=== PATIENT | male | born 1965 | race Caucasian/White ===

== ENCOUNTER 2018-06-12 18:18 | Inpatient (IN) ==
[2018-06-13] MEDS ORDERED: Insulin LISPRO 300 UNITS/3 ML VIAL SQ SCH (21:00)
[2018-06-13] MEDS ORDERED: Insulin DETEMIR 100 UNIT/ML per UNIT SQ ONE (21:00)
[2018-06-13] MEDS: Gabapentin 300 MG CAPSULE PO SCH (22:14)
[2018-06-13] MEDS: Apixaban 5 MG TABLET PO SCH (22:14)
[2018-06-13] MEDS: *HR* LORazepam 0.5 MG TABLET PO PRN (22:15)
[2018-06-13] MEDS: *HR* OxyCODONE/APAP 10/325 TABLET PO PRN (22:15)
[2018-06-13] MEDS: hydrALAZINE 10 MG TABLET PO SCH (22:16)
[2018-06-13] MEDS: Famotidine 20 MG TABLET PO SCH (22:16)
[2018-06-14] MEDS: Ondansetron 4 MG/2 ML VIAL IVP SCH ×2 (05:12→05:14)
[2018-06-14] MEDS ORDERED: Insulin LISPRO 300 UNITS/3 ML VIAL SQ SCH ×2 (08:00→11:30)
[2018-06-14] MEDS ORDERED: *HR* Dextrose 50 % in Water (Syg) 50 ML SYRINGE IVP PRN (08:38)
[2018-06-14] MEDS ORDERED: Dextrose Gel 15 GM/37.5 ML TUBE PO PRN ×2 (08:38)
[2018-06-14] MEDS ORDERED: D5% in Water 1,000 ML IVC PRN (08:38)
[2018-06-14] MEDS ORDERED: Insulin DETEMIR 100 UNIT/ML X5UNITS SQ ONE (08:43)
[2018-06-14] MEDS ORDERED: Insulin DETEMIR 100 UNIT/ML X5UNITS SQ SCH (09:00)
[2018-06-14] MEDS ORDERED: Cholecalciferol (D-3) 1,000 UNIT TABLET PO SCH (09:00)
[2018-06-14] MEDS: Sennosides 8.6 MG TABLET PO SCH (09:39)
[2018-06-14] MEDS: Gabapentin 300 MG CAPSULE PO SCH ×2 (09:39→21:28)
[2018-06-14] MEDS: Furosemide 40 MG TABLET PO SCH (09:40)
[2018-06-14] MEDS: Apixaban 5 MG TABLET PO SCH ×2 (09:40→21:27)
[2018-06-14] MEDS: hydrALAZINE 10 MG TABLET PO SCH ×3 (09:41→21:27)
[2018-06-14] MEDS: *HR* LORazepam 0.5 MG TABLET PO PRN (09:41)
[2018-06-14] MEDS: Calcium Acetate 667 MG CAPSULE PO SCH ×3 (09:41→16:32)
[2018-06-14] MEDS: Insulin LISPRO 300 UNITS/3 ML VIAL SQ SCH ×4 (09:42→21:33)
[2018-06-14] MEDS: Nicotine 21 MG PATCH.TD24 TD SCH (09:42)
[2018-06-14] MEDS: FARXIGA PO SCH (09:44)
--- NOTE | 2018-06-14 10:15 | Internal Med History&Physical ---
Date of Encounter: 06/14/18 Time of Encounter: 09:45 Assessment and Plan (1) Complete below knee amputation of right lower extremity Current visit: Yes Status: Acute Uncomplicated. PT and OT evaluations with ongoing intervention will be done. Continue Eliquis for DVT prophylaxis. Qualifiers: Encounter type: initial encounter Qualified Code(s): S88.111A - Complete traumatic amputation at level between knee and ankle, right lower leg, initial encounter (2) Hypertension Current visit: Yes Status: Chronic Continue Lopressor, hydralazine and Lasix. Qualifiers: Hypertension type: essential hypertension Qualified Code(s): I10 - Essential (primary) hypertension (3) CAD (coronary artery disease) Current visit: Yes Status: Chronic Continue Lopressor and Eliquis. Qualifiers: Coronary Disease-Associated Artery/Lesion type: [place] artery Associated angina: angina presence unspecified Qualified Code(s): I25.10 - A therosclerotic heart disease of [place] coronary artery without angina pectoris (4) CHF (congestive heart failure) Current visit: Yes Status: Chronic Continue Lopressor, hydralazine and Lasix Qualifiers: Heart failure type: combined systolic and diastolic Heart failure chronicity: chronic Qualified Code(s): I50.42 - Chronic combined systolic (congestive) and diastolic (congestive) heart failure (5) COPD (chronic obstructive pulmonary disease) Current visit: Yes Status: Chronic Continue oxygen. Qualifiers: COPD type: unspecified COPD Qualified Code(s): J44.9 - Chronic obstructive pulmonary disease, unspecified (6) CKD (chronic kidney disease) stage 3, GFR 30-59 ml/min Current visit: Yes Status: Chronic Monitor renal indices. Continue PhosLo (7) DM type 2 (diabetes mellitus, type 2) Current visit: Yes Status: Chronic Check hemoglobin A1c. Order Accu-Cheks with SSI. Qualifiers: Diabetes mellitus parts counterman insulin use: with prison use Diabetes mellitus complication status: with unspecified complications Qualified Code(s): E11.8 - Type 2 diabetes mellitus with unspecified complications; Z79.4 - skilled nursing (current) use of insulin (8) Anemia Current visit: Yes Status: Acute Will order anemia testing in a.m. Qualifiers: Anemia type: unspecified type Qualified Code(s): D64.9 - Anemia, unspecified (9) Low vitamin D level Current visit: Yes Status: Acute Check vitamin D level in a.m. (10) Anxiety and depression Current visit: Yes Status: Acute Continue Zoloft Internal Medicine - H&P: HPI Chief complaint: Right BKA Admitted From: Hospital to Hospital Transfer Plans for Post Hospital Care: Home History of present illness: Mr. Gillespie is a 52 year old male who was admitted to [facility] swing bed following hospitalization at [facility] where he underwent right BKA. He has been treated for osteomyelitis of the right foot and had severe peripheral vascular disease. His postop course was unremarkable and he was transferred to [facility] swing bed for rehabilitation therapy. He had left [facility] October 2017 for severe peripheral vascular disease. He reports multiple previous vascular surgery procedures on his legs prior to the amputations. [place] skeletal history is significant otherwise for DJD. He is uncertain if he has gout. Past Med Surg Social Fam HX - Past Medical History Medical history: arthritis, COPD, coronary artery disease, DVT, diabetes, GERD, hypertension, myocardial infarction, renal disease Additional medical history: blood clots, open heart surgery 2013, x3 bypasses each leg Psychiatric history: anxiety, depression - Past Surgical History Surgical History: cholecystectomy, coronary bypass (CABG), LE vascular intervention, vascular surgery Additional surgical history: wires in chest, "about 50 operations on my feet" - Social History Smoking Status: Current every day smoker Smokeless Tobacco Status: No Alcohol use: occasionally Drug use: none Internal Medicine - H&P: Meds Clopidogrel [Plavix] 75 mg PO DAILY 02/24/15 [History] Gabapentin 300 mg PO QAM 03/17/15 [History] Insulin ASPART [NovoLOG] 5 - 25 units SQ TID PRN 03/17/15 [History] Invokana 10 mg PO QAM 03/17/15 [History] Klonopin 1 mg PO QAM 03/17/15 [History] Nexium 40 mg PO QAM 03/17/15 [History] Percocet 10-325 mg Tablet 10 mg PO Q4HR 03/17/15 [History] Warfarin [Coumadin] 9 mg PO DAILY 03/17/15 [History] Zoloft 150 mg PO DAILY 03/17/15 [History] Ezetimibe [Zetia] 10 mg PO QAM 07/17/15 [History] Insulin DETEMIR [Levemir] 75 unit SQ BID 07/17/15 [History] Metoprolol [Lopressor] 25 mg PO BID 07/17/15 [History] Celecoxib [Celebrex] 200 mg PO BID 06/08/16 [History] Cyclobenzaprine [Flexeril] 10 mg PO TID PRN 06/08/16 [History] Furosemide [Lasix] 40 mg PO DAILY 06/08/16 [History] Allergy/AdvReac Type Severity Reaction Status Date / Time No Known Allergies Allergy Verified 02/24/15 15:48 All Systems PM: A 10-system review of systems was performed and is negative for pertinent findings except as documented above in the HPI. Review of systems: Gen.: He states his weight has been stable prior to the amputations Cardiovascular: He has history of hypertension. He has known ASHD status post RI 2015. He reports 6 vessel bypass surgery 2014 and had at least 2 coronary stents prior to the surgery. He reports his most recent heart catheter was April 2018 without intervention done. He has known ASPVD with leg amputations as per above. He has chronic CHF with LVEF of 25-30% on echocardiogram done 05/31/2018. There was left ventricular diastolic dysfunction reported. The E/A ratio was 1.9. There was LAE at 4.3 cm. He states he had AICD placement 2016. He reports history of DVT and pulmonary emboli and is on OAC Respiratory: He has smoked since age 10 up to 3-1/2 packs per day. He has a diagnosis COPD and uses oxygen at home. He states he has not smoked in the past month. He denies VICENTE workup GI: He has had cholecystectomy. He denies disorders of his liver or exocrine pancreas : He had urinary retention requiring Muñoz catheter insertion during his recent hospitalization. The catheter has not been removed. He has chronic kidney disease stage III. He denies other kidney bladder prostate disorders Neurologic: He denies large distribution strokes or seizures. Endocrine: He was diagnosed with DM 2 age 29. He has hyperlipidemia and has had low vitamin D level. He denies known thyroid disease Hematology/oncology: He denies internal malignancies. He has anemia but denies other blood disorders. Psychiatric: He has anxiety and depression [place] skeletal: As per history of present illness - Constitutional Vitals: Temp Pulse Resp BP Pulse Ox 97.9 F 85 18 141/85 92 06/14/18 08:09 06/14/18 08:09 06/14/18 08:09 06/14/18 08:09 06/14/18 08:09 Exam: Gen.: He is a well-developed well-nourished male who appears in no acute distress at present time HEENT: Head is atraumatic and normal cephalic. Eyes: EOMI. There is no scleral icterus. Mouth: Mucosa is dry Neck: There is no thyromegaly or adenopathy noted. Heart: Regular without murmurs gallops or ectopics Lungs: No wheezes or crackles are heard. Abdomen: Soft and nontender. No masses or guarding are noted. Extremities: He has a well-healed left AKA. He has a right BKA with elastic compression wrap on the distal stump which I did not remove. He has mild DJD changes of his hands. Neurologic: Mental status: He is talkative and a good historian. Cranial nerves: Smile is symmetric. Forehead wrinkles bilaterally. Tongue protrudes midline. EOMI. Motor: There is no pronator drift. Cerebellar: Finger to nose is intact bilaterally. Skin: Warm and dry
[2018-06-14] MEDS: *HR* OxyCODONE/APAP 10/325 TABLET PO PRN ×2 (12:22→16:33)
[2018-06-14] MEDS: Cholecalciferol (D-3) 1,000 UNIT TABLET PO SCH (12:28)
[2018-06-14] MEDS: Famotidine 20 MG TABLET PO SCH (21:28)
[2018-06-14] MEDS: Insulin DETEMIR 100 UNIT/ML X5UNITS SQ SCH (21:31)
[2018-06-15 05:12] LABS: Basophils # 0.1 K/mcL (0.0-0.2); Eosinophils # 0.4 K/mcL (0.0-0.6); Eosinophils % 4.9 %; Hematocrit 31.2 % (37.5-50.1); Hemoglobin 9.4 g/dL (12.9-16.9); Immature Granulocytes % 0.4 % (0-4); Lymphocytes # 0.9 K/mcL (0.6-4.6); Lymphocytes % 11.3 %; Mean Corpuscular HGB Conc 30.1 g/dL (31.6-35.5); Mean Corpuscular Hemoglobin 25.3 pg (28.0-33.3); Mean Corpuscular Volume 83.9 fL (83.0-100.0); Mean Platelet Volume 9.6 fL (9.4-12.4); Monocytes # 0.4 K/mcL (0.0-1.3); Monocytes % 5.3 %; Neutrophils # 6.4 K/mcL (1.6-8.9); Platelet Count 344 K/mcL (140-400); Red Blood Count 3.72 M/mcL (4.19-5.50); Red Cell Distribution Width 17.3 % (11.5-14.5); Segmented Neutrophils % 77.1 %
[2018-06-15 05:33] LABS: BUN/Creatinine Ratio 38 (6-26); Blood Urea Nitrogen 51 mg/dL (6-20); Calcium 8.6 mg/dL (8.6-10.3); Carbon Dioxide 30 mEq/L (23-29); Chloride 101 mEq/L (98-107); Glucose 107 mg/dL (70-105); Osmolality,Calculated 302 (280-300); Phosphorous 4.4 mg/dL (2.7-4.5); Potassium 4.3 mEq/L (3.5-5.1); Sodium 139 mEq/L (136-145); eGFR For Non-African Americans 55 (> 60)
[2018-06-15 05:45] LABS: Thyroid Stimulating Hormone 2.776 mcIU/mL (0.340-5.600)
[2018-06-15] MEDS: Insulin LISPRO 300 UNITS/3 ML VIAL SQ SCH ×4 (07:52→20:10)
[2018-06-15] MEDS: Calcium Acetate 667 MG CAPSULE PO SCH ×3 (07:57→16:29)
[2018-06-15] MEDS ORDERED: Furosemide 40 MG/4 ML VIAL IVP ONE (08:07)
[2018-06-15] MEDS: Apixaban 5 MG TABLET PO SCH ×2 (08:36→20:10)
[2018-06-15] MEDS: Gabapentin 300 MG CAPSULE PO SCH ×2 (08:36→20:09)
[2018-06-15] MEDS: Sennosides 8.6 MG TABLET PO SCH (08:37)
[2018-06-15] MEDS: Cholecalciferol (D-3) 1,000 UNIT TABLET PO SCH (08:38)
[2018-06-15] MEDS: hydrALAZINE 10 MG TABLET PO SCH ×3 (08:38→20:09)
[2018-06-15] MEDS: Furosemide 40 MG TABLET PO SCH (08:39)
[2018-06-15] MEDS: Nicotine 21 MG PATCH.TD24 TD SCH (08:39)
[2018-06-15] MEDS: FARXIGA PO SCH (08:39)
--- NOTE | 2018-06-15 09:05 | Internal Med Progress Note ---
Date of Encounter: 06/15/18 Time of Encounter: 08:55 - Assessment and plan (1) Complete below knee amputation of right lower extremity Current Visit: Yes Status: Acute Assessment and plan: June 15. Continue Eliquis for DVT prophylaxis. Continue PT and OT intervention. Qualifiers: Encounter type: initial encounter Qualified Code(s): S88.111A - Complete traumatic amputation at level between knee and ankle, right lower leg, initial encounter (2) Hypertension Current Visit: Yes Status: Chronic Assessment and plan: June 15. Blood pressure show significant fluctuation. Continue Lopressor, hydralazine, and Lasix. Qualifiers: Hypertension type: essential hypertension Qualified Code(s): I10 - Essential (primary) hypertension (3) CAD (coronary artery disease) Current Visit: Yes Status: Chronic Assessment and plan: June 15. Continue Lopressor and Eliquis. Qualifiers: Coronary Disease-Associated Artery/Lesion type: [place] artery Associated angina: angina presence unspecified Qualified Code(s): I25.10 - Atherosclerotic heart disease of [place] coronary artery without angina pectoris (4) CHF (congestive heart failure) Current Visit: Yes Status: Chronic Assessment and plan: June 15. Continue Lopressor, hydralazine, and Lasix. Qualifiers: Heart failure type: combined systolic and diastolic Heart failure chronicity: chronic Qualified Code(s): I50.42 - Chronic combined systolic (congestive) and diastolic (congestive) heart failure (5) COPD (chronic obstructive pulmonary disease) Current Visit: Yes Status: Chronic Assessment and plan: June 15. Continue oxygen Qualifiers: COPD type: unspecified COPD Qualified Code(s): J44.9 - Chronic obstructive pulmonary disease, unspecified (6) CKD (chronic kidney disease) stage 3, GFR 30-59 ml/min Current Visit: Yes Status: Chronic Assessment and plan: June 15. Continue PhosLo. Monitor renal indices. (7) DM type 2 (diabetes mellitus, type 2) Current Visit: Yes Status: Chronic Assessment and plan: June 15. Hemoglobin A1c pending. Continue Accu-Cheks with SSI. Qualifiers: Diabetes mellitus cost accounting clerk insulin use: with cost accounting clerk use Diabetes mellitus complication status: with unspecified complications Qualified Code(s): E11.8 - Type 2 diabetes mellitus with unspecified complications; Z79.4 - telephone order supervisor (current) use of insulin (8) Anemia Current Visit: Yes Status: Acute Assessment and plan: June 15. Anemia testing pending. Qualifiers: Anemia type: unspecified type Qualified Code(s): D64.9 - Anemia, unspecified (9) Low vitamin D level Current Visit: Yes Status: Acute Assessment and plan: June 15. Vitamin D level pending (10) Anxiety and depression Current Visit: Yes Status: Acute Assessment and plan: June 15. Continue Zoloft - Subjective Interval history: June 15. He has no new complaints. - Constitutional Vitals: Temp Pulse Resp BP Pulse Ox 98.1 F 83 28 160/93 95 06/15/18 08:25 06/15/18 08:25 06/15/18 08:25 06/15/18 08:25 06/15/18 08:25 Exam: He is resting comfortably in bed and appears in no acute distress. His affect is overall cheerful. He is appropriate in conversation. I reviewed his medications and lab results. Internal Medicine: Result - Labs CBC & Chem 7: 06/15/18 04:25 06/15/18 04:25 Labs: Short CBC 06/15/18 Range/Units 04:25 WBC 8.3 (4.3-11.1) K/mcL Hgb 9.4 L (12.9-16.9) g/dL Hct 31.2 L (37.5-50.1) % Plt Count 344 (140-400) K/mcL Neutrophils # 6.4 (1.6-8.9) K/mcL BMP 06/15/18 04:25 Sodium 139 Potassium 4.3 Chloride 101 Carbon Dioxide 30 H BUN 51 H Creatinine 1.35 H Glucose 107 H Calcium 8.6 Consult Discharge Plan - Plan Referrals: Axel Bhardwaj MD [Primary Care Provider] - 1 week
[2018-06-15 09:29] LABS: Estimated Average Glucose 214 mg/dl; Hemoglobin A1C 9.1 %
[2018-06-15] MEDS: Insulin DETEMIR 100 UNIT/ML X5UNITS SQ SCH ×2 (09:34→20:18)
[2018-06-15 10:00] LABS: Folate 13.8 ng/mL (3.0-16.0)
[2018-06-15] MEDS: *HR* OxyCODONE/APAP 10/325 TABLET PO PRN ×2 (12:53→20:09)
[2018-06-15] MEDS: Ondansetron 4 MG/2 ML VIAL IVP PRN (20:02)
[2018-06-15] MEDS: *HR* LORazepam 0.5 MG TABLET PO PRN (20:09)
[2018-06-15] MEDS: Famotidine 20 MG TABLET PO SCH (20:09)
[2018-06-15 20:40] LABS: % Iron Saturation 8 % (20-55); Iron 23 mcg/dL (65-175); Transferrin 198 mg/dL (203-362)
[2018-06-15 20:59] LABS: Ferritin 161 ng/mL (20-250)
[2018-06-16] MEDS: Cholecalciferol (D-3) 1,000 UNIT TABLET PO SCH (09:31)
[2018-06-16] MEDS: Sennosides 8.6 MG TABLET PO SCH (09:31)
[2018-06-16] MEDS: Furosemide 40 MG TABLET PO SCH (09:31)
[2018-06-16] MEDS: hydrALAZINE 10 MG TABLET PO SCH ×3 (09:31→20:43)
[2018-06-16] MEDS: Apixaban 5 MG TABLET PO SCH ×2 (09:31→20:43)
[2018-06-16] MEDS: Gabapentin 300 MG CAPSULE PO SCH ×2 (09:31→20:43)
[2018-06-16] MEDS: Calcium Acetate 667 MG CAPSULE PO SCH ×3 (09:31→17:04)
[2018-06-16] MEDS: Insulin LISPRO 300 UNITS/3 ML VIAL SQ SCH ×4 (09:32→23:35)
[2018-06-16] MEDS: Nicotine 21 MG PATCH.TD24 TD SCH (09:32)
[2018-06-16] MEDS: Insulin DETEMIR 100 UNIT/ML X5UNITS SQ SCH ×2 (09:33→20:43)
[2018-06-16] MEDS: FARXIGA PO SCH (09:36)
--- NOTE | 2018-06-16 10:39 | Internal Med Progress Note ---
Date of Encounter: 06/16/18 Time of Encounter: 10:30 - Assessment and plan (1) Complete below knee amputation of right lower extremity Current Visit: Yes Status: Acute Assessment and plan: June 15. Continue Eliquis for DVT prophylaxis. Continue PT and OT intervention. Qualifiers: Encounter type: initial encounter Qualified Code(s): S88.111A - Complete traumatic amputation at level between knee and ankle, right lower leg, initial encounter (2) Hypertension Current Visit: Yes Status: Chronic Assessment and plan: June 15. Blood pressure show significant fluctuation. Continue Lopressor, hydralazine, and Lasix. June 16. Change to Toprol-XL at increased dose since pressures are not well controlled. Continue hydralazine and Lasix. Add Imdur Qualifiers: Hypertension type: essential hypertension Qualified Code(s): I10 - Essential (primary) hypertension (3) CAD (coronary artery disease) Current Visit: Yes Status: Chronic Assessment and plan: June 15. Continue Lopressor and Eliquis. June 16. Increase metoprolol dose as Toprol XL. Continue Eliquis. Add Imdur for CAD/heart failure. Qualifiers: Coronary Disease-Associated Artery/Lesion type: [place] artery Associated angina: angina presence unspecified Qualified Code(s): I25.10 - Atherosclerotic heart disease of [place] coronary artery without angina pectoris (4) CHF (congestive heart failure) Current Visit: Yes Status: Chronic Assessment and plan: June 15. Continue Lopressor, hydralazine, and Lasix. June 16. Add Imdur and change metoprolol to Toprol-XL. Qualifiers: Heart failure type: combined systolic and diastolic Heart failure chronicity: chronic Qualified Code(s): I50.42 - Chronic combined systolic (congestive) and diastolic (congestive) heart failure (5) COPD (chronic obstructive pulmonary disease) Current Visit: Yes Status: Chronic Assessment and plan: June 15. Continue oxygen Qualifiers: COPD type: unspecified COPD Qualified Code(s): J44.9 - Chronic obstructive pulmonary disease, unspecified (6) CKD (chronic kidney disease) stage 3, GFR 30-59 ml/min Current Visit: Yes Status: Chronic Assessment and plan: June 15. Continue PhosLo. Monitor renal indices. (7) DM type 2 (diabetes mellitus, type 2) Current Visit: Yes Status: Chronic Assessment and plan: June 15. Hemoglobin A1c pending. Continue Accu-Cheks with SSI. June 16. Hemoglobin A1c elevated at 9.1%. Blood sugars currently adequately controlled. Continue Levemir and Accu-Cheks with SSI. Qualifiers: Diabetes mellitus terminal operator insulin use: with terminal operator use Diabetes m conraditus complication status: with unspecified complications Qualified Code(s): E11.8 - Type 2 diabetes mellitus with unspecified complications; Z79.4 - exterminator termite (current) use of insulin (8) Anemia Current Visit: Yes Status: Acute Assessment and plan: June 15. Anemia testing pending. June 16. Anemia testing shows iron 23, transferrin saturation 8%, tra nsferrin 198, ferritin 161, B12 346, and folate 13.8. Continue ferrous sulfate and add ascorbic acid and discontinue omeprazole to facilitate absorption. Qualifiers: Anemia type: unspecified type Qualified Code(s): D64.9 - Anemia, unspecified (9) Low vitamin D level Current Visit: Yes Status: Acute Assessment and plan: June 15. Vitamin D level pending June 16. Vitamin D level normal at 34. (10) Anxiety and depression Current Visit: Yes Status: Acute Assessment and plan: June 15. Continue Zoloft - Subjective Interval history: June 15. He has no new complaints. June 16. He has no new complaints except slight dyspnea. He inquired about going home and receiving antibiotics but was told insurance would not cover home antibiotics. I also explained he would benefit from ongoing therapy. - Constitutional Vitals: Temp Pulse Resp BP Pulse Ox 97.7 F 78 19 143/99 98 06/16/18 07:25 06/16/18 07:25 06/16/18 07:25 06/16/18 07:25 06/16/18 07:25 Exam: He is sitting on the side of bed and appears fairly comfortable. His affect is overall cheerful. I reviewed his medications and lab results. Internal Medicine: Result - Labs CBC & Chem 7: 06/15/18 04:25 06/15/18 04:25 Consult Discharge Plan - Plan Referrals: Axel Bhardwaj MD [Primary Care Provider] - 1 week
[2018-06-16] MEDS: Isosorbide MONOnitrate (24 HR) 30 MG TAB.ER.24H PO SCH (12:04)
[2018-06-16] MEDS ORDERED: Aminoglycoside Consult 1 EACH MC ONE (13:00)
[2018-06-16] MEDS: *HR* OxyCODONE/APAP 10/325 TABLET PO PRN (13:10)
[2018-06-16] MEDS: Albuterol 2.5 MG/3 ML NEBULIZER IH PRN (13:43)
[2018-06-16] MEDS: *HR* LORazepam 0.5 MG TABLET PO PRN (13:43)
[2018-06-17] MEDS: *HR* OxyCODONE/APAP 10/325 TABLET PO PRN ×2 (02:52→11:34)
[2018-06-17 05:54] LABS: Basophils # 0.1 K/mcL (0.0-0.2); Basophils % 0.7 %; Eosinophils # 0.3 K/mcL (0.0-0.6); Eosinophils % 4.6 %; Hematocrit 31.8 % (37.5-50.1); Hemoglobin 9.6 g/dL (12.9-16.9); Immature Granulocytes % 0.1 % (0-4); Lymphocytes # 0.6 K/mcL (0.6-4.6); Lymphocytes % 8.4 %; Mean Corpuscular HGB Conc 30.2 g/dL (31.6-35.5); Mean Corpuscular Hemoglobin 24.7 pg (28.0-33.3); Mean Platelet Volume 9.4 fL (9.4-12.4); Monocytes # 0.4 K/mcL (0.0-1.3); Monocytes % 5.9 %; Neutrophils # 5.7 K/mcL (1.6-8.9); Platelet Count 291 K/mcL (140-400); Red Blood Count 3.88 M/mcL (4.19-5.50); Red Cell Distribution Width 17.2 % (11.5-14.5); Segmented Neutrophils % 80.3 %
[2018-06-17] MEDS: Ascorbic Acid 500 MG TABLET PO SCH (06:09)
[2018-06-17 06:23] LABS: BUN/Creatinine Ratio 30 (6-26); Blood Urea Nitrogen 42 mg/dL (6-20); Calcium 8.6 mg/dL (8.6-10.3); Carbon Dioxide 30 mEq/L (23-29); Chloride 99 mEq/L (98-107); Glucose 120 mg/dL (70-105); Osmolality,Calculated 298 (280-300); Potassium 4.3 mEq/L (3.5-5.1); Sodium 138 mEq/L (136-145); eGFR For Non-African Americans 53 (> 60)
[2018-06-17] MEDS: Insulin DETEMIR 100 UNIT/ML X5UNITS SQ SCH ×2 (09:03→21:28)
[2018-06-17] MEDS: Calcium Acetate 667 MG CAPSULE PO SCH ×3 (09:04→17:33)
[2018-06-17] MEDS: Cholecalciferol (D-3) 1,000 UNIT TABLET PO SCH (09:04)
[2018-06-17] MEDS: Apixaban 5 MG TABLET PO SCH ×2 (09:04→21:24)
[2018-06-17] MEDS: Furosemide 40 MG TABLET PO SCH (09:04)
[2018-06-17] MEDS: hydrALAZINE 10 MG TABLET PO SCH ×3 (09:05→21:24)
[2018-06-17] MEDS: Isosorbide MONOnitrate (24 HR) 30 MG TAB.ER.24H PO SCH (09:05)
[2018-06-17] MEDS: Metoprolol XL (24 HR) Succ 50 MG TAB.ER.24H PO SCH (09:05)
[2018-06-17] MEDS: Sennosides 8.6 MG TABLET PO SCH (09:05)
[2018-06-17] MEDS: Gabapentin 300 MG CAPSULE PO SCH ×2 (09:05→21:26)
[2018-06-17] MEDS: Insulin LISPRO 300 UNITS/3 ML VIAL SQ SCH ×4 (09:12→21:27)
[2018-06-17] MEDS: FARXIGA PO SCH (09:13)
[2018-06-17] MEDS: Nicotine 21 MG PATCH.TD24 TD SCH (09:13)
[2018-06-18] MEDS: Ascorbic Acid 500 MG TABLET PO SCH (06:46)
[2018-06-18] MEDS: Insulin LISPRO 300 UNITS/3 ML VIAL SQ SCH ×4 (08:26→21:24)
[2018-06-18] MEDS: hydrALAZINE 10 MG TABLET PO SCH ×3 (08:27→21:25)
[2018-06-18] MEDS: Apixaban 5 MG TABLET PO SCH ×2 (08:27→21:25)
[2018-06-18] MEDS: Metoprolol XL (24 HR) Succ 50 MG TAB.ER.24H PO SCH (08:27)
[2018-06-18] MEDS: Cholecalciferol (D-3) 1,000 UNIT TABLET PO SCH (08:28)
[2018-06-18] MEDS: Isosorbide MONOnitrate (24 HR) 30 MG TAB.ER.24H PO SCH (08:28)
[2018-06-18] MEDS: Gabapentin 300 MG CAPSULE PO SCH ×2 (08:28→21:25)
[2018-06-18] MEDS: Furosemide 40 MG TABLET PO SCH (08:28)
[2018-06-18] MEDS: Calcium Acetate 667 MG CAPSULE PO SCH ×3 (08:28→16:55)
[2018-06-18] MEDS: Sennosides 8.6 MG TABLET PO SCH (08:28)
[2018-06-18] MEDS: Insulin DETEMIR 100 UNIT/ML X5UNITS SQ SCH ×2 (09:30→21:24)
[2018-06-18] MEDS: Nicotine 21 MG PATCH.TD24 TD SCH (09:37)
[2018-06-18] MEDS: FARXIGA PO SCH (09:38)
[2018-06-18] MEDS: *HR* LORazepam 0.5 MG TABLET PO PRN (15:49)
[2018-06-18] MEDS: *HR* OxyCODONE/APAP 10/325 TABLET PO PRN (15:49)
[2018-06-19 06:04] LABS: Basophils % 0.6 %; Eosinophils # 0.3 K/mcL (0.0-0.6); Eosinophils % 5.6 %; Hematocrit 30.3 % (37.5-50.1); Hemoglobin 9.3 g/dL (12.9-16.9); Immature Granulocytes % 0.4 % (0-4); Lymphocytes # 0.7 K/mcL (0.6-4.6); Lymphocytes % 13.8 %; Mean Corpuscular HGB Conc 30.7 g/dL (31.6-35.5); Mean Corpuscular Hemoglobin 25.2 pg (28.0-33.3); Mean Corpuscular Volume 82.1 fL (83.0-100.0); Mean Platelet Volume 9.5 fL (9.4-12.4); Monocytes # 0.4 K/mcL (0.0-1.3); Monocytes % 8.3 %; Neutrophils # 3.7 K/mcL (1.6-8.9); Platelet Count 270 K/mcL (140-400); Red Blood Count 3.69 M/mcL (4.19-5.50); Red Cell Distribution Width 17.2 % (11.5-14.5); Segmented Neutrophils % 71.3 %
[2018-06-19] MEDS: Ascorbic Acid 500 MG TABLET PO SCH (06:08)
[2018-06-19 06:24] LABS: BUN/Creatinine Ratio 23 (6-26); Blood Urea Nitrogen 31 mg/dL (6-20); Calcium 8.5 mg/dL (8.6-10.3); Carbon Dioxide 30 mEq/L (23-29); Chloride 101 mEq/L (98-107); Glucose 137 mg/dL (70-105); Osmolality,Calculated 295 (280-300); Potassium 3.9 mEq/L (3.5-5.1); Sodium 138 mEq/L (136-145); eGFR For Non-African Americans 55 (> 60)
[2018-06-19] MEDS: hydrALAZINE 10 MG TABLET PO SCH ×3 (10:01→21:06)
[2018-06-19] MEDS: Sennosides 8.6 MG TABLET PO SCH (10:01)
[2018-06-19] MEDS: Apixaban 5 MG TABLET PO SCH ×2 (10:02→21:07)
[2018-06-19] MEDS: Metoprolol XL (24 HR) Succ 50 MG TAB.ER.24H PO SCH (10:02)
[2018-06-19] MEDS: Isosorbide MONOnitrate (24 HR) 30 MG TAB.ER.24H PO SCH (10:02)
[2018-06-19] MEDS: Calcium Acetate 667 MG CAPSULE PO SCH ×3 (10:02→17:18)
[2018-06-19] MEDS: Cholecalciferol (D-3) 1,000 UNIT TABLET PO SCH (10:02)
[2018-06-19] MEDS: Furosemide 40 MG TABLET PO SCH (10:03)
[2018-06-19] MEDS: Gabapentin 300 MG CAPSULE PO SCH ×2 (10:03→21:07)
[2018-06-19] MEDS: Nicotine 21 MG PATCH.TD24 TD SCH (10:04)
[2018-06-19] MEDS: FARXIGA PO SCH (10:15)
[2018-06-19] MEDS: Insulin DETEMIR 100 UNIT/ML X5UNITS SQ SCH ×2 (10:16→21:08)
[2018-06-19] MEDS: *HR* OxyCODONE/APAP 10/325 TABLET PO PRN ×2 (10:16→21:07)
[2018-06-19] MEDS: Insulin LISPRO 300 UNITS/3 ML VIAL SQ SCH ×4 (10:17→21:09)
--- NOTE | 2018-06-19 11:27 | Internal Med Progress Note ---
Date of Encounter: 06/19/18 Time of Encounter: 11:20 - Assessment and plan (1) Complete below knee amputation of right lower extremity Current Visit: Yes Status: Acute Assessment and plan: June 15. Continue Eliquis for DVT prophylaxis. Continue PT and OT intervention. Qualifiers: Encounter type: initial encounter Qualified Code(s): S88.111A - Complete traumatic amputation at level between knee and ankle, right lower leg, initial encounter (2) Hypertension Current Visit: Yes Status: Chronic Assessment and plan: June 15. Blood pressure show significant fluctuation. Continue Lopressor, hydralazine, and Lasix. June 16. Change to Toprol-XL at increased dose since pressures are not well controlled. Continue hydralazine and Lasix. Add Imdur June 19. Blood pressure satisfactory. Continue hydralazine, Lasix, and Toprol with Imdur. Qualifiers: Hypertension type: essential hypertension Qualified Code(s): I10 - Essential (primary) hypertension (3) CAD (coronary artery disease) Current Visit: Yes Status: Chronic Assessment and plan: June 15. Continue Lopressor and Eliquis. June 16. Increase metoprolol dose as Toprol XL. Continue Eliquis. Add Imdur for CAD/heart failure. Qualifiers: Coronary Disease-Associated Artery/Lesion type: [place] artery Associated angina: angina presence unspecified Qualified Code(s): I25.10 - Atherosclerotic heart disease of [place] coronary artery without angina pectoris (4) CHF (congestive heart failure) Current Visit: Yes Status: Chronic Assessment and plan: June 15. Continue Lopressor, hydralazine, and Lasix. June 16. Add Imdur and change metoprolol to Toprol-XL. June 19. BN peptide improved to 1406. Increase Imdur and continue to monitor. Qualifiers: Heart failure type: combined systolic and diastolic Heart failure chronicity: chronic Qualified Code(s): I50.42 - Chronic combined systolic (congestive) and diastolic (congestive) heart failure (5) COPD (chronic obstructive pulmonary disease) Current Visit: Yes Status: Chronic Assessment and plan: June 15. Continue oxygen Qualifiers: COPD type: unspecified COPD Qualified Code(s): J44.9 - Chronic obstructive pulmonary disease, unspecified (6) CKD (chronic kidney disease) stage 3, GFR 30-59 ml/min Current Visit: Yes Status: Chronic Assessment and plan: June 15. Continue PhosLo. Monitor renal indices. (7) DM type 2 (diabetes mellitus, type 2) Current Visit: Yes Status: Chronic Assessment and plan: June 15. Hemoglobin A1c pending. Continue Accu-Cheks with SSI. June 16. Hemoglobin A1c elevated at 9.1%. Blood sugars currently adequately controlled. Continue Levemir and Accu-Cheks with SSI. Qualifiers: Diabetes mellitus jail insulin use: with automotive service advisor use Diabetes mellitus complication status: with unspecified complications Qualified Code(s): E11.8 - Type 2 diabetes mellitus with unspecified complications; Z79.4 - penitentiary (current) use of insulin (8) Anemia Current Visit: Yes Status: Acute Assessment and plan: June 15. Anemia testing pending. June 16. Anemia testing shows iron 23, transferrin saturation 8%, transferrin 198, ferritin 161, B12 346, and folate 13.8. Continue ferrous sulfate and add ascorbic acid and discontinue omeprazole to facilitate absorption. June 19. Hemoglobin minimally decreased to 9.3. Continue ferrous sulfate and ascorbic acid and remain off PPI. Qualifiers: Anemia type: unspecified type Qualified Code(s): D64.9 - Anemia, unspecified (9) Low vitamin D level Current Visit: Yes Status: Acute Assessment and plan: June 15. Vitamin D level pending June 16. Vitamin D level normal at 34. (10) Anxiety and depression Current Visit: Yes Status: Acute Assessment and plan: June 15. Continue Zoloft (11) Insomnia Current Visit: Yes Status: Acute Assessment and plan: June 19. He reports he is not consistently sleeping well at night and feels groggy in the daytime. Will order trazodone at bedtime and monitor. Qualifiers: Insomnia type: unspecified Qualified Code(s): G47.00 - Insomnia, unspecified - Subjective Interval history: June 15. He has no new complaints. June 16. He has no new complaints except slight dyspnea. He inquired about going home and receiving antibiotics but was told insurance would not cover home antibiotics. I also explained he would benefit from ongoing therapy. June 19. He has no new complaints. - Constitutional Vitals: Temp Pulse Resp BP Pulse Ox 97.6 F 78 14 137/82 90 06/19/18 07:06 06/19/18 07:06 06/19/18 07:06 06/19/18 07:06 06/19/18 07:06 Exam: He is sitting in a wheelchair at bedside resting comfortably. His affect is overall cheerful. I reviewed his medications and lab results. Internal Medicine: Result - Labs CBC & Chem 7: 06/19/18 04:55 06/19/18 04:55 Labs: Short CBC 06/19/18 Range/Units 04:55 WBC 5.2 (4.3-11.1) K/mcL Hgb 9.3 L (12.9-16.9) g/dL Hct 30.3 L (37.5-50.1) % Plt Count 270 (140-400) K/mcL Neutrophils # 3.7 (1.6-8.9) K/mcL BMP 06/19/18 04:55 Sodium 138 Potassium 3.9 Chloride 101 Carbon Dioxide 30 H BUN 31 H Creatinine 1.35 H Glucose 137 H Calcium 8.5 L Consult Discharge Plan - Plan Referrals: Axel Bhardwaj MD [Primary Care Provider] - 1 week
[2018-06-19] MEDS: traZODone 50 MG TABLET PO SCH (21:07)
[2018-06-19] MEDS: Famotidine 20 MG TABLET PO PRN (21:08)
[2018-06-20] MEDS: *HR* OxyCODONE/APAP 10/325 TABLET PO PRN ×3 (03:45→17:34)
[2018-06-20] MEDS: Ascorbic Acid 500 MG TABLET PO SCH (05:48)
[2018-06-20] MEDS: Insulin LISPRO 300 UNITS/3 ML VIAL SQ SCH ×4 (08:10→21:24)
[2018-06-20] MEDS: Insulin DETEMIR 100 UNIT/ML X5UNITS SQ SCH ×2 (08:12→21:24)
[2018-06-20] MEDS: Calcium Acetate 667 MG CAPSULE PO SCH ×3 (08:12→17:29)
[2018-06-20] MEDS: Sennosides 8.6 MG TABLET PO SCH (09:19)
[2018-06-20] MEDS: Furosemide 40 MG TABLET PO SCH (09:19)
[2018-06-20] MEDS: Cholecalciferol (D-3) 1,000 UNIT TABLET PO SCH (09:19)
[2018-06-20] MEDS: Isosorbide MONOnitrate (24 HR) 60 MG TAB.ER.24H PO SCH (09:21)
[2018-06-20] MEDS: Metoprolol XL (24 HR) Succ 50 MG TAB.ER.24H PO SCH (09:21)
[2018-06-20] MEDS: Apixaban 5 MG TABLET PO SCH ×2 (09:22→21:23)
[2018-06-20] MEDS: Gabapentin 300 MG CAPSULE PO SCH ×2 (09:23→21:22)
[2018-06-20] MEDS: hydrALAZINE 10 MG TABLET PO SCH ×3 (09:23→21:23)
[2018-06-20] MEDS: Nicotine 21 MG PATCH.TD24 TD SCH (09:27)
[2018-06-20] MEDS: FARXIGA PO SCH (10:22)
[2018-06-20] MEDS: *HR* LORazepam 0.5 MG TABLET PO PRN (21:22)
[2018-06-20] MEDS: Famotidine 20 MG TABLET PO PRN (21:24)
[2018-06-20] MEDS: traZODone 50 MG TABLET PO SCH (21:24)
[2018-06-21] MEDS: Ascorbic Acid 500 MG TABLET PO SCH (05:41)
[2018-06-21] MEDS: Insulin LISPRO 300 UNITS/3 ML VIAL SQ SCH ×4 (07:35→20:14)
[2018-06-21] MEDS: Calcium Acetate 667 MG CAPSULE PO SCH ×3 (07:36→16:16)
[2018-06-21] MEDS: FARXIGA PO SCH (09:31)
[2018-06-21] MEDS: Furosemide 40 MG TABLET PO SCH (09:56)
[2018-06-21] MEDS: Apixaban 5 MG TABLET PO SCH ×2 (09:57→20:13)
[2018-06-21] MEDS: Gabapentin 300 MG CAPSULE PO SCH ×2 (09:57→20:13)
[2018-06-21] MEDS: Metoprolol XL (24 HR) Succ 50 MG TAB.ER.24H PO SCH (09:57)
[2018-06-21] MEDS: Sennosides 8.6 MG TABLET PO SCH (09:58)
[2018-06-21] MEDS: Isosorbide MONOnitrate (24 HR) 60 MG TAB.ER.24H PO SCH (09:58)
[2018-06-21] MEDS: Cholecalciferol (D-3) 1,000 UNIT TABLET PO SCH (09:58)
[2018-06-21] MEDS: hydrALAZINE 10 MG TABLET PO SCH ×3 (09:58→20:13)
[2018-06-21] MEDS: Insulin DETEMIR 100 UNIT/ML X5UNITS SQ SCH ×2 (09:59→20:13)
[2018-06-21] MEDS: Nicotine 21 MG PATCH.TD24 TD SCH (10:01)
[2018-06-21] MEDS: Ondansetron 4 MG/2 ML VIAL IVP PRN (10:01)
--- NOTE | 2018-06-21 11:10 | Internal Med Progress Note ---
Date of Encounter: 06/21/18 Time of Encounter: 11:02 - Assessment and plan (1) Complete below knee amputation of right lower extremity Current Visit: Yes Status: Acute Assessment and plan: June 15. Continue Eliquis for DVT prophylaxis. Continue PT and OT intervention. Qualifiers: Encounter type: initial encounter Qualified Code(s): S88.111A - Complete traumatic amputation at level between knee and ankle, right lower leg, initial encounter (2) Hypertension Current Visit: Yes Status: Chronic Assessment and plan: June 15. Blood pressure show significant fluctuation. Continue Lopressor, hydralazine, and Lasix. June 16. Change to Toprol-XL at increased dose since pressures are not well controlled. Continue hydralazine and Lasix. Add Imdur June 19. Blood pressure satisfactory. Continue hydralazine, Lasix, and Toprol with Imdur. Qualifiers: Hypertension type: essential hypertension Qualified Code(s): I10 - Essential (primary) hypertension (3) CAD (coronary artery disease) Current Visit: Yes Status: Chronic Assessment and plan: June 15. Continue Lopressor and Eliquis. June 16. Increase metoprolol dose as Toprol XL. Continue Eliquis. Add Imdur for CAD/heart failure. Qualifiers: Coronary Disease-Associated Artery/Lesion type: [place] artery Associated angina: angina presence unspecified Qualified Code(s): I25.10 - Atherosclerotic heart disease of [place] coronary artery without angina pectoris (4) CHF (congestive heart failure) Current Visit: Yes Status: Chronic Assessment and plan: June 15. Continue Lopressor, hydralazine, and Lasix. June 16. Add Imdur and change metoprolol to Toprol-XL. June 19. BN peptide improved to 1406. Increase Imdur and continue to monitor. June 21. Clinically improved. Recheck labs in a.m. Qualifiers: Heart failure type: combined systolic and diastolic Heart failure chronicity: chronic Qualified Code(s): I50.42 - Chronic combined systolic (congestive) and diastolic (congestive) heart failure (5) COPD (chronic obstructive pulmonary disease) Current Visit: Yes Status: Chronic Assessment and plan: June 15. Continue oxygen Qualifiers: COPD type: unspecified COPD Qualified Code(s): J44.9 - Chronic obstructive pulmonary disease, unspecified (6) CKD (chronic kidney disease) stage 3, GFR 30-59 ml/min Current Visit: Yes Status: Chronic Assessment and plan: June 15. Continue PhosLo. Monitor renal indices. (7) DM type 2 (diabetes mellitus, type 2) Current Visit: Yes Status: Chronic Assessment and plan: June 15. Hemoglobin A1c pending. Continue Accu-Cheks with SSI. June 16. Hemoglobin A1c elevated at 9.1%. Blood sugars currently adequately controlled. Continue Levemir and Accu-Cheks with SSI. Qualifiers: Diabetes mellitus intermediate school teacher insulin use: with residential use Diabetes mellitus complication status: with unspecified complications Qualified Code(s): E11.8 - Type 2 diabetes mellitus with unspecified complications; Z79.4 - FPC (current) use of insulin (8) Anemia Current Visit: Yes Status: Acute Assessment and plan: June 15. Anemia testing pending. June 16. Anemia testing shows iron 23, transferrin saturation 8%, transferrin 198, ferritin 161, B12 346, and folate 13.8. Continue ferrous sulfate and add ascorbic acid and discontinue omeprazole to facilitate absorption. June 19. Hemoglobin minimally decreased to 9.3. Continue ferrous sulfate and ascorbic acid and remain off PPI. June 21. Recheck labs in a.m. Qualifiers: Anemia type: unspecified type Qualified Code(s): D64.9 - Anemia, unspecified (9) Low vitamin D level Current Visit: Yes Status: Acute Assessment and plan: June 15. Vitamin D level pending June 16. Vitamin D level normal at 34. (10) Anxiety and depression Current Visit: Yes Status: Acute Assessment and plan: June 15. Continue Zoloft (11) Insomnia Current Visit: Yes Status: Acute Assessment and plan: June 19. He reports he is not consistently sleeping well at night and feels groggy in the daytime. Will order trazodone at bedtime and monitor. June 21. He reports insomnia has lessened. Continue trazodone. Qualifiers: Insomnia type: unspecified Qualified Code(s): G47.00 - Insomnia, unspecified - Subjective Interval history: June 15. He has no new complaints. June 16. He has no new complaints except slight dyspnea. He inquired about going home and receiving antibiotics but was told insurance would not cover home antibiotics. I also explained he would benefit from ongoing therapy. June 19. He has no new complaints. June 21. He has no new complaints. - Constitutional Vitals: Temp Pulse Resp BP Pulse Ox 98.1 F 81 18 132/72 96 06/21/18 07:09 06/21/18 09:53 06/21/18 07:09 06/21/18 09:53 06/21/18 09:53 Exam: He is resting comfortably in bed and appears in no acute distress. His affect is overall cheerful. I reviewed his medications and lab results. Internal Medicine: Result - Labs CBC & Chem 7: 06/19/18 04:55 06/19/18 04:55 Consult Discharge Plan - Plan Referrals: Axel Bhardwaj MD [Primary Care Provider] - 1 week
[2018-06-21] MEDS: *HR* OxyCODONE/APAP 10/325 TABLET PO PRN (13:40)
[2018-06-21] MEDS: traZODone 50 MG TABLET PO SCH (20:12)
[2018-06-22] MEDS: *HR* OxyCODONE/APAP 10/325 TABLET PO PRN ×3 (00:21→17:27)
[2018-06-22 05:24] LABS: Basophils % 0.6 %; Eosinophils # 0.2 K/mcL (0.0-0.6); Eosinophils % 4.5 %; Hematocrit 31.3 % (37.5-50.1); Hemoglobin 9.5 g/dL (12.9-16.9); Immature Granulocytes % 0.2 % (0-4); Lymphocytes # 0.8 K/mcL (0.6-4.6); Lymphocytes % 15.6 %; Mean Corpuscular HGB Conc 30.4 g/dL (31.6-35.5); Mean Corpuscular Hemoglobin 24.8 pg (28.0-33.3); Mean Corpuscular Volume 81.7 fL (83.0-100.0); Mean Platelet Volume 9.2 fL (9.4-12.4); Monocytes # 0.3 K/mcL (0.0-1.3); Monocytes % 6.7 %; Neutrophils # 3.6 K/mcL (1.6-8.9); Platelet Count 234 K/mcL (140-400); Red Blood Count 3.83 M/mcL (4.19-5.50); Red Cell Distribution Width 17.2 % (11.5-14.5); Segmented Neutrophils % 72.4 %
[2018-06-22 05:47] LABS: Calcium 8.7 mg/dL (8.6-10.3); Potassium 4.7 mEq/L (3.5-5.1)
[2018-06-22] MEDS: Ascorbic Acid 500 MG TABLET PO SCH (05:55)
[2018-06-22] MEDS: Isosorbide MONOnitrate (24 HR) 60 MG TAB.ER.24H PO SCH (08:20)
[2018-06-22] MEDS: Gabapentin 300 MG CAPSULE PO SCH ×2 (08:21→20:01)
[2018-06-22] MEDS: Metoprolol XL (24 HR) Succ 50 MG TAB.ER.24H PO SCH (08:22)
[2018-06-22] MEDS: Cholecalciferol (D-3) 1,000 UNIT TABLET PO SCH (08:24)
[2018-06-22] MEDS: Apixaban 5 MG TABLET PO SCH ×2 (08:24→20:01)
[2018-06-22] MEDS: hydrALAZINE 10 MG TABLET PO SCH ×3 (08:25→20:00)
[2018-06-22] MEDS: Furosemide 40 MG TABLET PO SCH (08:25)
[2018-06-22] MEDS: Insulin LISPRO 300 UNITS/3 ML VIAL SQ SCH ×4 (08:26→20:01)
[2018-06-22] MEDS: Sennosides 8.6 MG TABLET PO SCH (08:26)
[2018-06-22] MEDS: Calcium Acetate 667 MG CAPSULE PO SCH ×3 (08:30→15:33)
[2018-06-22] MEDS: Nicotine 21 MG PATCH.TD24 TD SCH (08:34)
[2018-06-22] MEDS: FARXIGA PO SCH (08:34)
[2018-06-22] MEDS: Ondansetron 4 MG/2 ML VIAL IVP PRN (08:47)
[2018-06-22] MEDS: Insulin DETEMIR 100 UNIT/ML X5UNITS SQ SCH ×2 (08:47→20:01)
[2018-06-22] MEDS: traZODone 50 MG TABLET PO SCH (20:00)
[2018-06-22] MEDS: *HR* LORazepam 0.5 MG TABLET PO PRN (20:01)
[2018-06-23] MEDS: Ascorbic Acid 500 MG TABLET PO SCH (05:38)
[2018-06-23] MEDS: Ondansetron 4 MG/2 ML VIAL IVP PRN (07:23)
[2018-06-23] MEDS: Metoprolol XL (24 HR) Succ 50 MG TAB.ER.24H PO SCH (09:03)
[2018-06-23] MEDS: Apixaban 5 MG TABLET PO SCH ×2 (09:03→20:57)
[2018-06-23] MEDS: Gabapentin 300 MG CAPSULE PO SCH ×2 (09:03→20:57)
[2018-06-23] MEDS: Sennosides 8.6 MG TABLET PO SCH (09:03)
[2018-06-23] MEDS: hydrALAZINE 10 MG TABLET PO SCH ×3 (09:04→20:58)
[2018-06-23] MEDS: *HR* OxyCODONE/APAP 10/325 TABLET PO PRN ×2 (09:04→17:20)
[2018-06-23] MEDS: Calcium Acetate 667 MG CAPSULE PO SCH ×3 (09:04→17:21)
[2018-06-23] MEDS: Furosemide 40 MG TABLET PO SCH (09:04)
[2018-06-23] MEDS: Isosorbide MONOnitrate (24 HR) 60 MG TAB.ER.24H PO SCH (09:04)
[2018-06-23] MEDS: Cholecalciferol (D-3) 1,000 UNIT TABLET PO SCH (09:04)
[2018-06-23] MEDS: Insulin LISPRO 300 UNITS/3 ML VIAL SQ SCH ×4 (09:06→21:01)
[2018-06-23] MEDS: Insulin DETEMIR 100 UNIT/ML X5UNITS SQ SCH ×2 (10:30→20:59)
[2018-06-23] MEDS: FARXIGA PO SCH (10:33)
[2018-06-23] MEDS: Nicotine 21 MG PATCH.TD24 TD SCH (10:33)
--- NOTE | 2018-06-23 12:19 | Internal Med Progress Note ---
Date of Encounter: 06/23/18 Time of Encounter: 12:05 - Assessment and plan (1) Complete below knee amputation of right lower extremity Current Visit: Yes Status: Acute Assessment and plan: June 15. Continue Eliquis for DVT prophylaxis. Continue PT and OT intervention. Qualifiers: Encounter type: initial encounter Qualified Code(s): S88.111A - Complete traumatic amputation at level between knee and ankle, right lower leg, initial encounter (2) Hypertension Current Visit: Yes Status: Chronic Assessment and plan: June 15. Blood pressure show significant fluctuation. Continue Lopressor, hydralazine, and Lasix. June 16. Change to Toprol-XL at increased dose since pressures are not well controlled. Continue hydralazine and Lasix. Add Imdur June 19. Blood pressure satisfactory. Continue hydralazine, Lasix, and Toprol with Imdur. Qualifiers: Hypertension type: essential hypertension Qualified Code(s): I10 - Essential (primary) hypertension (3) CAD (coronary artery disease) Current Visit: Yes Status: Chronic Assessment and plan: June 15. Continue Lopressor and Eliquis. June 16. Increase metoprolol dose as Toprol XL. Continue Eliquis. Add Imdur for CAD/heart failure. June 23. Continue Toprol, Eliquis, and increase Imdur. Qualifiers: Coronary Disease-Associated Artery/Lesion type: [place] artery Associated angina: angina presence unspecified Qualified Code(s): I25.10 - Atherosclerotic heart disease of [place] coronary artery without angina pectoris (4) CHF (congestive heart failure) Current Visit: Yes Status: Chronic Assessment and plan: June 15. Continue Lopressor, hydralazine, and Lasix. June 16. Add Imdur and change metoprolol to Toprol-XL. June 19. BN peptide improved to 1406. Increase Imdur and continue to monitor. June 21. Clinically improved. Recheck labs in a.m. June 23. BN peptide slightly improved to 1329 yesterday. Increase Imdur dose. Qualifiers: Heart failure type: combined systolic and diastolic Heart failure chronicity: chronic Qualified Code(s): I50.42 - Chronic combined systolic (congestive) and diastolic (congestive) heart failure (5) COPD (chronic obstructive pulmonary disease) Current Visit: Yes Status: Chronic Assessment and plan: June 15. Continue oxygen Qualifiers: COPD type: unspecified COPD Qualified Code(s): J44.9 - Chronic obstructive pulmonary disease, unspecified (6) CKD (chronic kidney disease) stage 3, GFR 30-59 ml/min Current Visit: Yes Status: Chronic Assessment and plan: June 15. Continue PhosLo. Monitor renal indices. (7) DM type 2 (diabetes mellitus, type 2) Current Visit: Yes Status: Chronic Assessment and plan: June 15. Hemoglobin A1c pending. Continue Accu-Cheks with SSI. June 16. Hemoglobin A1c elevated at 9.1%. Blood sugars currently adequately controlled. Continue Levemir and Accu-Cheks with SSI. 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 Anemia testing pending. June 16. Anemia testing shows iron 23, transferrin saturation 8%, transferrin 198, ferritin 161, B12 346, and folate 13.8. Continue ferrous sulfate and add ascorbic acid and discontinue omeprazole to facilitate absorption. June 19. Hemoglobin minimally decreased to 9.3. Continue ferrous sulfate and ascorbic acid and remain off PPI. June 21. Recheck labs in a.m. June 23. Hemoglobin slightly improved to 9.5. Continue ferrous sulfate and ascorbic acid. Qualifiers: Anemia type: unspecified type Qualified Code(s): D64.9 - Anemia, unspecified (9) Low vitamin D level Current Visit: Yes Status: Acute Assessment and plan: June 15. Vitamin D level pending June 16. Vitamin D level normal at 34. (10) Anxiety and depression Current Visit: Yes Status: Acute Assessment and plan: June 15. Continue Zoloft (11) Insomnia Current Visit: Yes Status: Acute Assessment and plan: June 19. He reports he is not consistently sleeping well at night and feels groggy in the daytime. Will order trazodone at bedtime and monitor. June 21. He reports insomnia has lessened. Continue trazodone. Qualifiers: Insomnia type: unspecified Qualified Code(s): G47.00 - Insomnia, unspecified - Subjective Interval history: June 15. He has no new complaints. June 16. He has no new complaints except slight dyspnea. He inquired about going home and receiving antibiotics but was told insurance would not cover home antibiotics. I also explained he would benefit from ongoing therapy. June 19. He has no new complaints. June 21. He has no new complaints. June 23. He complains of slight dyspnea. He denies any cough or chest pain or other discomfort. - Constitutional Vitals: Temp Pulse Resp BP Pulse Ox 97.5 F L 75 18 138/79 95 06/23/18 08:00 06/23/18 08:00 06/23/18 08:00 06/23/18 08:00 06/23/18 10:38 Exam: He is resting comfortably in bed and appears in no acute distress. His lungs show no wheezes or crackles. He is not tachypnea. I reviewed his medications and lab results. Internal Medicine: Result - Labs CBC & Chem 7: 06/22/18 04:40 06/22/18 04:40 Consult Discharge Plan - Plan Referrals: Axel Bhardwaj MD [Primary Care Provider] - 1 week
[2018-06-23] MEDS: MOM Conc 10 ML UD.LIQ PO SCH (12:32)
[2018-06-23] MEDS: traZODone 50 MG TABLET PO SCH (20:57)
[2018-06-24] MEDS: *HR* OxyCODONE/APAP 10/325 TABLET PO PRN ×4 (00:31→22:18)
[2018-06-24] MEDS: *HR* LORazepam 0.5 MG TABLET PO PRN ×2 (00:31→22:18)
[2018-06-24] MEDS: Ascorbic Acid 500 MG TABLET PO SCH (05:28)
[2018-06-24] MEDS: Insulin LISPRO 300 UNITS/3 ML VIAL SQ SCH ×4 (08:43→22:22)
[2018-06-24] MEDS: Insulin DETEMIR 100 UNIT/ML X5UNITS SQ SCH ×2 (08:46→22:19)
[2018-06-24] MEDS: Calcium Acetate 667 MG CAPSULE PO SCH ×3 (08:47→16:20)
[2018-06-24] MEDS: Gabapentin 300 MG CAPSULE PO SCH ×2 (08:48→22:18)
[2018-06-24] MEDS: Cholecalciferol (D-3) 1,000 UNIT TABLET PO SCH (08:48)
[2018-06-24] MEDS: Metoprolol XL (24 HR) Succ 50 MG TAB.ER.24H PO SCH (08:49)
[2018-06-24] MEDS: Sennosides 8.6 MG TABLET PO SCH (08:49)
[2018-06-24] MEDS: Apixaban 5 MG TABLET PO SCH ×2 (08:49→22:18)
[2018-06-24] MEDS: hydrALAZINE 10 MG TABLET PO SCH ×3 (08:50→22:18)
[2018-06-24] MEDS: Isosorbide MONOnitrate (24 HR) 60 MG TAB.ER.24H PO SCH (08:50)
[2018-06-24] MEDS: Furosemide 40 MG TABLET PO SCH (08:50)
[2018-06-24] MEDS: FARXIGA PO SCH (08:52)
[2018-06-24] MEDS: Nicotine 21 MG PATCH.TD24 TD SCH (08:52)
[2018-06-24] MEDS: Ondansetron 4 MG/2 ML VIAL IVP PRN ×2 (09:19→18:57)
[2018-06-24] MEDS: traZODone 50 MG TABLET PO SCH (22:18)
[2018-06-24] MEDS: Famotidine 20 MG TABLET PO PRN (22:18)
[2018-06-25] MEDS ORDERED: *HR* LORazepam 2 MG/ML VIAL IM STA (04:37)
[2018-06-25] MEDS: Calcium Acetate 667 MG CAPSULE PO SCH ×3 (09:24→17:39)
[2018-06-25] MEDS: Cholecalciferol (D-3) 1,000 UNIT TABLET PO SCH (09:25)
[2018-06-25] MEDS: Apixaban 5 MG TABLET PO SCH ×2 (09:25→20:41)
[2018-06-25] MEDS: Sennosides 8.6 MG TABLET PO SCH (09:25)
[2018-06-25] MEDS: Ascorbic Acid 500 MG TABLET PO SCH (09:25)
[2018-06-25] MEDS: Gabapentin 300 MG CAPSULE PO SCH ×2 (09:25→20:42)
[2018-06-25] MEDS: hydrALAZINE 10 MG TABLET PO SCH ×3 (09:25→20:42)
[2018-06-25] MEDS: Insulin DETEMIR 100 UNIT/ML X5UNITS SQ SCH ×2 (09:25→20:42)
[2018-06-25] MEDS: Isosorbide MONOnitrate (24 HR) 60 MG TAB.ER.24H PO SCH (09:25)
[2018-06-25] MEDS: Furosemide 40 MG TABLET PO SCH (09:25)
[2018-06-25] MEDS: Metoprolol XL (24 HR) Succ 50 MG TAB.ER.24H PO SCH (09:25)
[2018-06-25] MEDS: Insulin LISPRO 300 UNITS/3 ML VIAL SQ SCH ×4 (09:26→21:06)
[2018-06-25] MEDS: Albuterol 2.5 MG/3 ML NEBULIZER IH PRN (11:47)
[2018-06-25] MEDS: FARXIGA PO SCH (13:29)
[2018-06-25] MEDS: MOM Conc 10 ML UD.LIQ PO SCH (13:31)
[2018-06-25] MEDS: Nicotine 21 MG PATCH.TD24 TD SCH (15:31)
[2018-06-25] MEDS: *HR* LORazepam 0.5 MG TABLET PO PRN (15:43)
--- NOTE | 2018-06-25 18:03 | Internal Med Progress Note ---
Date of Encounter: 06/25/18 Time of Encounter: 17:50 - Assessment and plan (1) Complete below knee amputation of right lower extremity Current Visit: Yes Status: Acute Assessment and plan: June 15. Continue Eliquis for DVT prophylaxis. Continue PT and OT intervention. Qualifiers: Encounter type: initial encounter Qualified Code(s): S88.111A - Complete traumatic amputation at level between knee and ankle, right lower leg, initial encounter (2) Hypertension Current Visit: Yes Status: Chronic Assessment and plan: June 15. Blood pressure show significant fluctuation. Continue Lopressor, hydralazine, and Lasix. June 16. Change to Toprol-XL at increased dose since pressures are not well controlled. Continue hydralazine and Lasix. Add Imdur June 19. Blood pressure satisfactory. Continue hydralazine, Lasix, and Toprol with Imdur. Qualifiers: Hypertension type: essential hypertension Qualified Code(s): I10 - Essential (primary) hypertension (3) CAD (coronary artery disease) Current Visit: Yes Status: Chronic Assessment and plan: June 15. Continue Lopressor and Eliquis. June 16. Increase metoprolol dose as Toprol XL. Continue Eliquis. Add Imdur for CAD/heart failure. June 23. Continue Toprol, Eliquis, and increase Imdur. Qualifiers: Coronary Disease-Associated Artery/Lesion type: [place] artery Associated angina: angina presence unspecified Qualified Code(s): I25.10 - Atherosclerotic heart disease of [place] coronary artery without angina pectoris (4) CHF (congestive heart failure) Current Visit: Yes Status: Chronic Assessment and plan: June 15. Continue Lopressor, hydralazine, and Lasix. June 16. Add Imdur and change metoprolol to Toprol-XL. June 19. BN peptide improved to 1406. Increase Imdur and continue to monitor. June 21. Clinically improved. Recheck labs in a.m. June 23. BN peptide slightly improved to 1329 yesterday. Increase Imdur dose. June 25. Recheck labs in a.m. Qualifiers: Heart failure type: combined systolic and diastolic Heart failure chronicity: chronic Qualified Code(s): I50.42 - Chronic combined systolic (congestive) and diastolic (congestive) heart failure (5) COPD (chronic obstructive pulmonary disease) Current Visit: Yes Status: Chronic Assessment and plan: June 15. Continue oxygen Qualifiers: COPD type: unspecified COPD Qualified Code(s): J44.9 - Chronic obstructive pulmonary disease, unspecified (6) CKD (chronic kidney disease) stage 3, GFR 30-59 ml/min Current Visit: Yes Status: Chronic Assessment and plan: June 15. Continue PhosLo. Monitor renal indices. June 25. Recheck labs in a.m. (7) DM type 2 (diabetes mellitus, type 2) Current Visit: Yes Status: Chronic Assessment and plan: June 15. Hemoglobin A1c pending. Continue Accu-Cheks with SSI. June 16. Hemoglobin A1c elevated at 9.1%. Blood sugars currently adequately controlled. Continue Levemir and Accu-Cheks with SSI. Qualifiers: Diabetes mellitus halfway insulin use: with intermission coordinator use Diabetes mellitus complication status: with unspecified complications Qualified Code(s): E11.8 - Type 2 diabetes mellitus with unspecified complications; Z79.4 - salvage determiner (current) use of insulin (8) Anemia Current Visit: Yes Status: Acute Assessment and plan: June 15. Anemia testing pending. June 16. Anemia testing shows iron 23, transferrin saturation 8%, transferrin 198, ferritin 161, B12 346, and folate 13.8. Continue ferrous sulfate and add ascorbic acid and discontinue omeprazole to facilitate absorption. June 19. Hemoglobin minimally decreased to 9.3. Continue ferrous sulfate and ascorbic acid and remain off PPI. June 21. Recheck labs in a.m. June 23. Hemoglobin slightly improved to 9.5. Continue ferrous sulfate and ascorbic acid. June 25. Recheck labs in a.m. Qualifiers: Anemia type: unspecified type Qualified Code(s): D64.9 - Anemia, unspecified (9) Low vitamin D level Current Visit: Yes Status: Acute Assessment and plan: June 15. Vitamin D level pending June 16. Vitamin D level normal at 34. (10) Anxiety and depression Current Visit: Yes Status: Acute Assessment and plan: June 15. Continue Zoloft (11) Insomnia Current Visit: Yes Status: Acute Assessment and plan: June 19. He reports he is not consistently sleeping well at night and feels groggy in the daytime. Will order trazodone at bedtime and monitor. June 21. He reports insomnia has lessened. Continue trazodone. Qualifiers: Insomnia type: unspecified Qualified Code(s): G47.00 - Insomnia, unspecified - Subjective Interval history: June 15. He has no new complaints. June 16. He has no new complaints except slight dyspnea. He inquired about going home and receiving antibiotics but was told insurance would not cover home antibiotics. I also explained he would benefit from ongoing therapy. June 19. He has no new complaints. June 21. He has no new complaints. June 23. He complains of slight dyspnea. He denies any cough or chest pain or other discomfort. June 25. He is sleeping and does not awaken to voice. - Constitutional Vitals: Temp Pulse Resp BP Pulse Ox 98 F 81 16 124/73 98 06/25/18 07:36 06/25/18 07:36 06/25/18 11:47 06/25/18 07:36 06/25/18 11:47 Exam: He appears to be in no respiratory distress. There is no edema of his right BKA. I reviewed his medications and lab results. Internal Medicine: Result - Labs CBC & Chem 7: 06/22/18 04:40 06/22/18 04:40 Consult Discharge Plan - Plan Referrals: Axel Bhardwaj MD [Primary Care Provider] - 1 week
[2018-06-25] MEDS: traZODone 50 MG TABLET PO SCH (21:08)
[2018-06-26] MEDS: *HR* OxyCODONE/APAP 10/325 TABLET PO PRN ×2 (02:41→20:28)
[2018-06-26 04:44] LABS: Basophils % 0.4 %; Eosinophils % 0.3 %; Hematocrit 30.6 % (37.5-50.1); Hemoglobin 9.5 g/dL (12.9-16.9); Immature Granulocytes % 0.2 % (0-4); Lymphocytes # 0.5 K/mcL (0.6-4.6); Mean Corpuscular Hemoglobin 24.9 pg (28.0-33.3); Mean Corpuscular Volume 80.1 fL (83.0-100.0); Mean Platelet Volume 9.7 fL (9.4-12.4); Monocytes # 0.6 K/mcL (0.0-1.3); Monocytes % 6.1 %; Platelet Count 191 K/mcL (140-400); Red Blood Count 3.82 M/mcL (4.19-5.50); Red Cell Distribution Width 17.2 % (11.5-14.5)
[2018-06-26 05:09] LABS: Albumin 3.3 g/dL (3.5-5.7); Albumin/Globulin Ratio 0.8 (1.1-2.2); Bilirubin,Total 0.6 mg/dL (0.3-1.0); Calcium 8.8 mg/dL (8.6-10.3); Potassium 4.5 mEq/L (3.5-5.1); Total Protein 7.3 g/dL (6.4-8.9)
[2018-06-26] MEDS: Ascorbic Acid 500 MG TABLET PO SCH (05:43)
[2018-06-26] MEDS: Apixaban 5 MG TABLET PO SCH ×2 (06:26→22:51)
[2018-06-26] MEDS: Insulin LISPRO 300 UNITS/3 ML VIAL SQ SCH ×4 (09:45→23:01)
[2018-06-26] MEDS: Insulin DETEMIR 100 UNIT/ML X5UNITS SQ SCH ×2 (09:47→23:00)
[2018-06-26] MEDS: Sennosides 8.6 MG TABLET PO SCH (09:48)
[2018-06-26] MEDS: Metoprolol XL (24 HR) Succ 50 MG TAB.ER.24H PO SCH (09:48)
[2018-06-26] MEDS: Isosorbide MONOnitrate (24 HR) 60 MG TAB.ER.24H PO SCH (09:48)
[2018-06-26] MEDS: hydrALAZINE 10 MG TABLET PO SCH ×3 (09:48→22:29)
[2018-06-26] MEDS: Gabapentin 300 MG CAPSULE PO SCH ×2 (09:48→22:30)
[2018-06-26] MEDS: Nicotine 21 MG PATCH.TD24 TD SCH (09:49)
[2018-06-26] MEDS: FARXIGA PO SCH (09:49)
[2018-06-26] MEDS: Furosemide 40 MG TABLET PO SCH (09:49)
[2018-06-26] MEDS: Cholecalciferol (D-3) 1,000 UNIT TABLET PO SCH (09:49)
[2018-06-26] MEDS: Calcium Acetate 667 MG CAPSULE PO SCH ×3 (09:53→17:24)
--- NOTE | 2018-06-26 10:54 | Internal Med Progress Note ---
Date of Encounter: 06/26/18 Time of Encounter: 10:45 - Assessment and plan (1) Complete below knee amputation of right lower extremity Current Visit: Yes Status: Acute Assessment and plan: June 15. Continue Eliquis for DVT prophylaxis. Continue PT and OT intervention. Qualifiers: Encounter type: initial encounter Qualified Code(s): S88.111A - Complete traumatic amputation at level between knee and ankle, right lower leg, initial encounter (2) Hypertension Current Visit: Yes Status: Chronic Assessment and plan: June 15. Blood pressure show significant fluctuation. Continue Lopressor, hydralazine, and Lasix. June 16. Change to Toprol-XL at increased dose since pressures are not well controlled. Continue hydralazine and Lasix. Add Imdur June 19. Blood pressure satisfactory. Continue hydralazine, Lasix, and Toprol with Imdur. Qualifiers: Hypertension type: essential hypertension Qualified Code(s): I10 - Essential (primary) hypertension (3) CAD (coronary artery disease) Current Visit: Yes Status: Chronic Assessment and plan: June 15. Continue Lopressor and Eliquis. June 16. Increase metoprolol dose as Toprol XL. Continue Eliquis. Add Imdur for CAD/heart failure. June 23. Continue Toprol, Eliquis, and increase Imdur. June 26. Increase Imdur for worsening BN peptide. Qualifiers: Coronary Disease-Associated Artery/Lesion type: [place] artery Associated angina: angina presence unspecified Qualified Code(s): I25.10 - Atherosclerotic heart disease of [place] coronary artery without angina pectoris (4) CHF (congestive heart failure) Current Visit: Yes Status: Chronic Assessment and plan: June 15. Continue Lopressor, hydralazine, and Lasix. June 16. Add Imdur and change metoprolol to Toprol-XL. June 19. BN peptide improved to 1406. Increase Imdur and continue to monitor. June 21. Clinically improved. Recheck labs in a.m. June 23. BN peptide slightly improved to 1329 yesterday. Increase Imdur dose. June 25. Recheck labs in a.m. June 26. BN peptide significantly increased to 2592. Start Lanoxin and increase Imdur. Continue Toprol, hydralazine, and Lasix. Qualifiers: Heart failure type: combined systolic and diastolic Heart failure chronicity: chronic Qualified Code(s): I50.42 - Chronic combined systolic (congestive) and diastolic (congestive) heart failure (5) COPD (chronic obstructive pulmonary disease) Current Visit: Yes Status: Chronic Assessment and plan: June 15. Continue oxygen Qualifiers: COPD type: unspecified COPD Qualified Code(s): J44.9 - Chronic obstructive pulmonary disease, unspecified (6) CKD (chronic kidney disease) stage 3, GFR 30-59 ml/min Current Visit: Yes Status: Chronic Assessment and plan: June 15. Continue PhosLo. Monitor renal indices. June 25. Recheck labs in a.m. June 26. Creatinine stable at 1.54. (7) DM type 2 (diabetes mellitus, type 2) Current Visit: Yes Status: Chronic Assessment and plan: June 15. Hemoglobin A1c pending. Continue Accu-Cheks with SSI. June 16. Hemoglobin A1c elevated at 9.1%. Blood sugars currently adequately controlled. Continue Levemir and Accu-Cheks with SSI. Qualifiers: Diabetes mellitus watermelon inspector insulin use: with [facility] use Diabetes mellitus complication status: with unspecified complications Qualified Code(s): E11.8 - Type 2 diabetes mellitus with unspecified complications; Z79.4 - intermediate project manager (current) use of insulin (8) Anemia Current Visit: Yes Status: Acute Assessment and plan: June 15. Anemia testing pending. June 16. Anemia testing shows iron 23, transferrin saturation 8%, transferrin 198, ferritin 161, B12 346, and folate 13.8. Continue ferrous sulfate and add ascorbic acid and discontinue omeprazole to facilitate absorption. June 19. Hemoglobin minimally decreased to 9.3. Continue ferrous sulfate and ascorbic acid and remain off PPI. June 21. Recheck labs in a.m. June 23. Hemoglobin slightly improved to 9.5. Continue ferrous sulfate and ascorbic acid. June 25. Recheck labs in a.m. June 26. Hemoglobin stable at 9.5. Continue ferrous sulfate and ascorbic acid. Qualifiers: Anemia type: unspecified type Qualified Code(s): D64.9 - Anemia, unspecified (9) Low vitamin D level Current Visit: Yes Status: Acute Assessment and plan: June 15. Vitamin D level pending June 16. Vitamin D level normal at 34. (10) Anxiety and depression Current Visit: Yes Status: Acute Assessment and plan: June 15. Continue Zoloft June 26. Decrease Zoloft to avoid possible side effect of agitation and somnolence (11) Insomnia Current Visit: Yes Status: Acute Assessment and plan: June 19. He reports he is not consistently sleeping well at night and feels groggy in the daytime. Will order trazodone at bedtime and monitor. June 21. He reports insomnia has lessened. Continue trazodone. June 21. He appears lethargic. Decrease Zoloft as per above. Discontinue trazodone. Qualifiers: Insomnia type: unspecified Qualified Code(s): G47.00 - Insomnia, unspecified (12) Urinary retention Current Visit: Yes Status: Acute Assessment and plan: June 26. Continue Muñoz catheter per [facility] urologist recommendation. - Subjective Interval history: June 15. He has no new complaints. June 16. He has no new complaints except slight dyspnea. He inquired about going home and receiving antibiotics but was told insurance would not cover home antibiotics. I also explained he would benefit from ongoing therapy. June 19. He has no new complaints. June 21. He has no new complaints. June 23. He complains of slight dyspnea. He denies any cough or chest pain or other discomfort. June 25. He is sleeping and does not awaken to voice. June 26. He has no new complaints. He reports occasional dyspnea with activity but does not feel dyspneic at rest at this time. Staff reports he seems lethargic, confused, and agitated occasionally. - Constitutional Vitals: Temp Pulse Resp BP Pulse Ox 98.1 F 87 16 118/63 90 06/26/18 07:11 06/26/18 07:11 06/26/18 07:11 06/26/18 07:11 06/26/18 07:11 Exam: He is sitting in a wheelchair at bedside resting comfortably. He answers questions appropriately. He is appropriate in spontaneous conversation. I reviewed his medications and lab results. Internal Medicine: Result - Labs CBC & Chem 7: 06/26/18 04:17 06/26/18 04:17 Labs: Short CBC 06/26/18 Range/Units 04:17 WBC 9.1 D (4.3-11.1) K/mcL Hgb 9.5 L (12.9-16.9) g/dL Hct 30.6 L (37.5-50.1) % Plt Count 191 (140-400) K/mcL Neutrophils # 8.0 (1.6-8.9) K/mcL BMP 06/26/18 04:17 Sodium 138 Potassium 4.5 Chloride 101 Carbon Dioxide 27 BUN 33 H Creatinine 1.55 H Glucose 166 H Calcium 8.8 Liver Function 06/26/18 Range/Units 04:17 Total Bilirubin 0.6 (0.3-1.0) mg/dL AST 12 L (13-39) Units/L ALT 10 (7-52) Units/L Alkaline Phosphatase 94 (34-104) Units/L Albumin 3.3 L (3.5-5.7) g/dL Consult Discharge Plan - Plan Referrals: Axel Bhardwaj MD [Primary Care Provider] - 1 week
[2018-06-26] MEDS: *HR* Digoxin 0.125 MG TABLET PO SCH (11:35)
[2018-06-26 11:58] LABS: Bilirubin,Urine Small (Negative); Blood,Urine Small (Negative); Clarity,Urine Clear (Clear); Color,Urine Yellow (Yellow); Glucose,Urine (UA) Normal (Normal); Ketones,Urine 15 mg/dL (Negative); Leukocyte Esterase,Urine Negative (Negative); Nitrite,Urine Negative (Negative); Protein,Urine >=300 mg/dL (Neg-Trace); Urobilinogen,Urine Normal (Normal)
[2018-06-26 12:14] LABS: Amphetamine Screen,Urine Negative ng/mL (Cutoff=1000); Barbiturate Screen,Urine Negative ng/mL (Cutoff=200); Benzodiazepines Screen,Urine Negative ng/mL (Cutoff=200); Cannabinoid Screen,Urine Negative ng/mL (Cutoff = 50); Cocaine Screen,Urine Negative ng/mL (Cutoff= 300); Opiate Screen,Urine Negative ng/mL (Cutoff=300); Phencyclidine Screen,Urine Negative ng/mL (Cutoff=25)
[2018-06-26 12:29] LABS: Squamous Epithelial Cell,Urine Few per lpf (None-Few); WBC,Urine 0-3 per hpf (0-3)
[2018-06-26 12:30] LABS: Amorphous Sediment,Urine Few (Few); Bacteria,Urine Few per hpf (None-Few); Mucus,Urine Few (Few)
[2018-06-26 13:15] LABS: ABG Base Excess 3 mEq/L (-2 to 3); ABG HCO3 27 mEq/L (21-27); ABG Oxygen Saturation 94 % (95-98); ABG PCO2 37 mmHg (35-45); ABG PH 7.46 pH Units (7.32-7.45); ABG PO2 67 mmHg (85-104); ABG TCO2 28 mEq/L (20-26)
[2018-06-26] MEDS: *HR* LORazepam 0.5 MG TABLET PO PRN (22:30)
[2018-06-26] MEDS ORDERED: MOM Conc 10 ML UD.LIQ PO STA (22:47)
[2018-06-27] MEDS: Ascorbic Acid 500 MG TABLET PO SCH (06:59)
[2018-06-27] MEDS: Albuterol 2.5 MG/3 ML NEBULIZER IH PRN (09:46)
[2018-06-27] MEDS: Insulin LISPRO 300 UNITS/3 ML VIAL SQ SCH ×4 (10:02→20:51)
[2018-06-27] MEDS: Insulin DETEMIR 100 UNIT/ML X5UNITS SQ SCH ×2 (10:03→20:51)
[2018-06-27] MEDS: hydrALAZINE 10 MG TABLET PO SCH ×3 (10:03→20:51)
[2018-06-27] MEDS: Apixaban 5 MG TABLET PO SCH ×2 (10:03→20:51)
[2018-06-27] MEDS: Furosemide 40 MG TABLET PO SCH (10:04)
[2018-06-27] MEDS: *HR* Digoxin 0.125 MG TABLET PO SCH (10:04)
[2018-06-27] MEDS: Gabapentin 300 MG CAPSULE PO SCH ×2 (10:04→20:50)
[2018-06-27] MEDS: Sennosides 8.6 MG TABLET PO SCH (10:04)
[2018-06-27] MEDS: Cholecalciferol (D-3) 1,000 UNIT TABLET PO SCH (10:04)
[2018-06-27] MEDS: Metoprolol XL (24 HR) Succ 50 MG TAB.ER.24H PO SCH (10:04)
[2018-06-27] MEDS: Isosorbide MONOnitrate (24 HR) 60 MG TAB.ER.24H PO SCH (10:04)
[2018-06-27] MEDS: Nicotine 21 MG PATCH.TD24 TD SCH (10:05)
[2018-06-27] MEDS: FARXIGA PO SCH (10:05)
[2018-06-27] MEDS: Calcium Acetate 667 MG CAPSULE PO SCH ×3 (10:07→17:20)
[2018-06-27 11:05] LABS: Basophils % 0.2 %; Eosinophils % 0.1 %; Hematocrit 30.4 % (37.5-50.1); Hemoglobin 9.5 g/dL (12.9-16.9); Immature Granulocytes % 0.4 % (0-4); Lymphocytes # 0.4 K/mcL (0.6-4.6); Lymphocytes % 4.9 %; Mean Corpuscular HGB Conc 31.3 g/dL (31.6-35.5); Mean Corpuscular Hemoglobin 24.8 pg (28.0-33.3); Mean Corpuscular Volume 79.4 fL (83.0-100.0); Mean Platelet Volume 10.2 fL (9.4-12.4); Monocytes # 0.6 K/mcL (0.0-1.3); Monocytes % 6.4 %; Neutrophils # 7.9 K/mcL (1.6-8.9); Platelet Count 199 K/mcL (140-400); Red Blood Count 3.83 M/mcL (4.19-5.50); Red Cell Distribution Width 17.7 % (11.5-14.5)
[2018-06-27 11:16] LABS: ABG Base Excess 3 mEq/L (-2 to 3); ABG HCO3 27 mEq/L (21-27); ABG Oxygen Saturation 94 % (95-98); ABG PCO2 36 mmHg (35-45); ABG PH 7.48 pH Units (7.32-7.45); ABG PO2 65 mmHg (85-104); ABG TCO2 28 mEq/L (20-26)
[2018-06-27] MEDS: *HR* LORazepam 0.5 MG TABLET PO PRN ×2 (13:18→20:51)
[2018-06-27] MEDS: MOM Conc 10 ML UD.LIQ PO SCH (14:00)
--- NOTE | 2018-06-27 16:36 | Internal Med Progress Note ---
Date of Encounter: 06/27/18 Time of Encounter: 16:25 - Assessment and plan (1) Complete below knee amputation of right lower extremity Current Visit: Yes Status: Acute Assessment and plan: June 15. Continue Eliquis for DVT prophylaxis. Continue PT and OT intervention. June 27. Continue IV vancomycin through June 30. Qualifiers: Encounter type: initial encounter Qualified Code(s): S88.111A - Complete traumatic amputation at level between knee and ankle, right lower leg, initial encounter (2) Hypertension Current Visit: Yes Status: Chronic Assessment and plan: June 15. Blood pressure show significant fluctuation. Continue Lopressor, hydralazine, and Lasix. June 16. Change to Toprol-XL at increased dose since pressures are not well controlled. Continue hydralazine and Lasix. Add Imdur June 19. Blood pressure satisfactory. Continue hydralazine, Lasix, and Toprol with Imdur. Qualifiers: Hypertension type: essential hypertension Qualified Code(s): I10 - Essential (primary) hypertension (3) CAD (coronary artery disease) Current Visit: Yes Status: Chronic Assessment and plan: June 15. Continue Lopressor and Eliquis. June 16. Increase metoprolol dose as Toprol XL. Continue Eliquis. Add Imdur for CAD/heart failure. June 23. Continue Toprol, Eliquis, and increase Imdur. June 26. Increase Imdur for worsening BN peptide. Qualifiers: Coronary Disease-Associated Artery/Lesion type: [place] artery Associated angina: angina presence unspecified Qualified Code(s): I25.10 - At herosclerotic heart disease of [place] coronary artery without angina pectoris (4) CHF (congestive heart failure) Current Visit: Yes Status: Chronic Assessment and plan: June 15. Continue Lopressor, hydralazine, and Lasix. June 16. Add Imdur and change metoprolol to Toprol-XL. June 19. BN peptide improved to 1406. Increase Imdur and continue to monitor. June 21. Clinically improved. Recheck labs in a.m. June 23. BN peptide slightly improved to 1329 yesterday. Increase Imdur dose. June 25. Recheck labs in a.m. June 26. BN peptide significantly increased to 2592. Start Lanoxin and increase Imdur. Continue Toprol, hydralazine, and Lasix. June 27. BN peptide minimally changed at 2583 today. IV Lasix dose will be given. He will be changed from Lasix to Bumex Qualifiers: Heart failure type: combined systolic and diastolic Heart failure chronicity: chronic Qualified Code(s): I50.42 - Chronic combined systolic (congestive) and diastolic (congestive) heart failure (5) COPD (chronic obstructive pulmonary disease) Current Visit: Yes Status: Chronic Assessment and plan: June 15. Continue oxygen June 27. Chest x-ray showed findings recommending consideration for pneumonia. WBC remains normal but left shift is present. Start oral Levaquin. Continue IV vancomycin for MRSA infection. Qualifiers: COPD type: unspecified COPD Qualified Code(s): J44.9 - Chronic obstructive pulmonary disease, unspecified (6) CKD (chronic kidney disease) stage 3, GFR 30-59 ml/min Current Visit: Yes Status: Chronic Assessment and plan: June 15. Continue PhosLo. Monitor renal indices. June 25. Recheck labs in a.m. June 26. Creatinine stable at 1.55. (7) DM type 2 (diabetes mellitus, type 2) Current Visit: Yes Status: Chronic Assessment and plan: June 15. Hemoglobin A1c pending. Continue Accu-Cheks with SSI. June 16. Hemoglobin A1c elevated at 9.1%. Blood sugars currently adequately controlled. Continue Levemir and Accu-Cheks with SSI. Qualifiers: Diabetes mellitus regional intermodal truck driver insulin use: with regional intermodal truck driver use Diabetes mellitus complication status: with unspecified complications Qualified Code(s): E11.8 - Type 2 diabetes mellitus with unspecified complications; Z79.4 - [employer] (current) use of insulin (8) Anemia Current Visit: Yes Status: Acute Assessment and plan: June 15. Anemia testing pending. June 16. Anemia testing shows iron 23, transferrin saturation 8%, transferrin 198, ferritin 161, B12 346, and folate 13.8. Continue ferrous sulfate and add ascorbic acid and discontinue omeprazole to facilitate absorption. June 19. Hemoglobin minimally decreased to 9.3. Continue ferrous sulfate and ascorbic acid and remain off PPI. June 21. Recheck labs in a.m. June 23. Hemoglobin slightly improved to 9.5. Continue ferrous sulfate and ascorbic acid. June 25. Recheck labs in a.m. June 26. Hemoglobin stable at 9.5. Continue ferrous sulfate and ascorbic a bharath. Qualifiers: Anemia type: unspecified type Qualified Code(s): D64.9 - Anemia, unspecified (9) Low vitamin D level Current Visit: Yes Status: Acute Assessment and plan: June 15. Vitamin D level pending June 16. Vitamin D level normal at 34. (10) Anxiety and depression Current Visit: Yes Status: Acute Assessment and plan: June 15. Continue Zoloft June 26. Decrease Zoloft to avoid possible side effect of agitation and somnolence (11) Insomnia Current Visit: Yes Status: Acute Assessment and plan: June 19. He reports he is not consistently sleeping well at night and feels groggy in the daytime. Will order trazodone at bedtime and monitor. June 21. He reports insomnia has lessened. Continue trazodone. June 21. He appears lethargic. Decrease Zoloft as per above. Discontinue trazodone. Qualifiers: Insomnia type: unspecified Qualified Code(s): G47.00 - Insomnia, unspecified (12) Urinary retention Current Visit: Yes Status: Acute Assessment and plan: June 26. Continue Muñoz catheter per [facility] urologist recommendation. - Subjective Interval history: June 15. He has no new complaints. June 16. He has no new complaints except slight dyspnea. He inquired about going home and receiving antibiotics but was told insurance would not cover home antibiotics. I also explained he would benefit from ongoing therapy. June 19. He has no new complaints. June 21. He has no new complaints. June 23. He complains of slight dyspnea. He denies any cough or chest pain or other discomfort. June 25. He is sleeping and does not awaken to voice. June 26. He has no new complaints. He reports occasional dyspnea with activity but does not feel dyspneic at rest at this time. Staff reports he seems lethargic, confused, and agitated occasionally. June 27. He has no new complaints. - Constitutional Vitals: Temp Pulse Resp BP Pulse Ox 98.1 F 90 18 126/72 94 06/27/18 11:00 06/27/18 11:00 06/27/18 11:00 06/27/18 11:00 06/27/18 11:00 Exam: He is sitting on the side of bed. He appears less lethargic than yesterday. He is appropriate in conversation. His lungs show no wheezes or crackles. I reviewed his labs, chest x-ray, and medications. Internal Medicine: Result - Labs CBC & Chem 7: 06/27/18 10:50 06/26/18 04:17 Labs: Short CBC 06/27/18 Range/Units 10:50 WBC 9.0 (4.3-11.1) K/mcL Hgb 9.5 L (12.9-16.9) g/dL Hct 30.4 L (37.5-50.1) % Plt Count 199 (140-400) K/mcL Neutrophils # 7.9 (1.6-8.9) K/mcL - ABG Interpretation ABG results: ABG ABG pH 7.48 pH Units (7.32-7.45) H 06/27/18 11:13 ABG pCO2 36 mmHg (35-45) 06/27/18 11:13 ABG pO2 65 mmHg (85-104) L 06/27/18 11:13 ABG O2 Saturation 94 % (95-98) L 06/27/18 11:13 - Impressions Impressions Head CT 06/27/18 00:54 IMPRESSION: No acute intracranial abnormality. D/ / Emory Tellez MD / Emory Tellez MD Interpreting Provider: Emory Tellez MD Chest X-Ray 06/27/18 10:25 IMPRESSION: Worsening airspace disease, right greater than left, most likely secondary to edema or pneumonia. Stable small left pleural effusion. D/ / Stiven Wright MD / Stiven Wright MD Interpreting Provider: Stiven Wright MD Consult Discharge Plan - Plan Referrals: Axel Bhardwaj MD [Primary Care Provider] - 1 week
[2018-06-27] MEDS ORDERED: Furosemide 40 MG/4 ML VIAL IVP ONE (16:41)
[2018-06-27] MEDS: levoFLOXacin 500 MG TABLET PO SCH (17:11)
[2018-06-27] MEDS: Lactobacillus 1 EACH CAP.SPRINK PO SCH (20:50)
[2018-06-27] MEDS: *HR* OxyCODONE/APAP 10/325 TABLET PO PRN (20:50)
[2018-06-28] MEDS ORDERED: Furosemide 40 MG/4 ML VIAL IVP ONE ×2 (03:56→20:43)
[2018-06-28] MEDS: Ascorbic Acid 500 MG TABLET PO SCH (05:45)
[2018-06-28] MEDS: levoFLOXacin 500 MG TABLET PO SCH (09:14)
[2018-06-28] MEDS: Metoprolol XL (24 HR) Succ 50 MG TAB.ER.24H PO SCH (09:14)
[2018-06-28] MEDS: Cholecalciferol (D-3) 1,000 UNIT TABLET PO SCH (09:14)
[2018-06-28] MEDS: Bumetanide 1 MG TABLET PO SCH (09:15)
[2018-06-28] MEDS: *HR* Digoxin 0.125 MG TABLET PO SCH (09:15)
[2018-06-28] MEDS: Lactobacillus 1 EACH CAP.SPRINK PO SCH ×2 (09:15→20:29)
[2018-06-28] MEDS: Isosorbide MONOnitrate (24 HR) 60 MG TAB.ER.24H PO SCH (09:15)
[2018-06-28] MEDS: Sennosides 8.6 MG TABLET PO SCH (09:15)
[2018-06-28] MEDS: Gabapentin 300 MG CAPSULE PO SCH (09:15)
[2018-06-28] MEDS: Insulin DETEMIR 100 UNIT/ML X5UNITS SQ SCH ×2 (09:15→20:30)
[2018-06-28] MEDS: Apixaban 5 MG TABLET PO SCH ×2 (09:15→20:29)
[2018-06-28] MEDS: hydrALAZINE 10 MG TABLET PO SCH ×3 (09:16→20:30)
[2018-06-28] MEDS: Insulin LISPRO 300 UNITS/3 ML VIAL SQ SCH ×4 (09:16→20:30)
[2018-06-28] MEDS: Calcium Acetate 667 MG CAPSULE PO SCH ×3 (09:16→17:40)
[2018-06-28] MEDS: FARXIGA PO SCH (09:38)
[2018-06-28] MEDS: Nicotine 21 MG PATCH.TD24 TD SCH (09:38)
--- NOTE | 2018-06-28 10:34 | Internal Med Progress Note ---
Date of Encounter: 06/28/18 Time of Encounter: 10:24 - Assessment and plan (1) Complete below knee amputation of right lower extremity Current Visit: Yes Status: Acute Assessment and plan: June 15. Continue Eliquis for DVT prophylaxis. Continue PT and OT intervention. June 27. Continue IV vancomycin through June 30. Qualifiers: Encounter type: initial encounter Qualified Code(s): S88.111A - Complete traumatic amputation at level between knee and ankle, right lower leg, initial encounter (2) Hypertension Current Visit: Yes Status: Chronic Assessment and plan: June 15. Blood pressure show significant fluctuation. Continue Lopressor, hydralazine, and Lasix. June 16. Change to Toprol-XL at increased dose since pressures are not well controlled. Continue hydralazine and Lasix. Add Imdur June 19. Blood pressure satisfactory. Continue hydralazine, Lasix, and Toprol with Imdur. Qualifiers: Hypertension type: essential hypertension Qualified Code(s): I10 - Essential (primary) hypertension (3) CAD (coronary artery disease) Current Visit: Yes Status: Chronic Assessment and plan: June 15. Continue Lopressor and Eliquis. June 16. Increase metoprolol dose as Toprol XL. Continue Eliquis. Add Imdur for CAD/heart failure. June 23. Continue Toprol, Eliquis, and increase Imdur. June 26. Increase Imdur for worsening BN peptide. Qualifiers: Coronary Disease-Associated Artery/Lesion type: [place] artery Associated angina: angina presence unspecified Qualified Code(s): I25.10 - At herosclerotic heart disease of [place] coronary artery without angina pectoris (4) CHF (congestive heart failure) Current Visit: Yes Status: Chronic Assessment and plan: June 15. Continue Lopressor, hydralazine, and Lasix. June 16. Add Imdur and change metoprolol to Toprol-XL. June 19. BN peptide improved to 1406. Increase Imdur and continue to monitor. June 21. Clinically improved. Recheck labs in a.m. June 23. BN peptide slightly improved to 1329 yesterday. Increase Imdur dose. June 25. Recheck labs in a.m. June 26. BN peptide significantly increased to 2592. Start Lanoxin and increase Imdur. Continue Toprol, hydralazine, and Lasix. June 27. BN peptide minimally changed at 2583 today. IV Lasix dose will be given. He will be changed from Lasix to Bumex June 28. Continue present regimen. Recheck labs in a.m. Qualifiers: Heart failure type: combined systolic and diastolic Heart failure ch ronicity: chronic Qualified Code(s): I50.42 - Chronic combined systolic (congestive) and diastolic (congestive) heart failure (5) COPD (chronic obstructive pulmonary disease) Current Visit: Yes Status: Chronic Assessment and plan: June 15. Continue oxygen June 27. Chest x-ray showed findings recommending consideration for pneumonia. WBC remains normal but left shift is present. Start oral Levaquin. Continue IV vancomycin for MRSA infection. Qualifiers: COPD type: unspecified COPD Qualified Code(s): J44.9 - Chronic obstructive pulmonary disease, unspecified (6) CKD (chronic kidney disease) stage 3, GFR 30-59 ml/min Current Visit: Yes Status: Chronic Assessment and plan: June 15. Continue PhosLo. Monitor renal indices. June 25. Recheck labs in a.m. June 26. Creatinine stable at 1.55. (7) DM type 2 (diabetes mellitus, type 2) Current Visit: Yes Status: Chronic Assessment and plan: June 15. Hemoglobin A1c pending. Continue Accu-Cheks with SSI. June 16. Hemoglobin A1c elevated at 9.1%. Blood sugars currently adequately controlled. Continue Levemir and Accu-Cheks with SSI. Qualifiers: Diabetes mellitus long-term insulin use: with long-term use Diabetes mellitus complication status: with unspecified complications Qualified Code(s): E11.8 - Type 2 diabetes mellitus with unspecified complications; Z79.4 - custodial (current) use of insulin (8) Anemia Current Visit: Yes Status: Acute Assessment and plan: June 15. Anemia testing pending. June 16. Anemia testing shows iron 23, transferrin saturation 8%, transferrin 198, ferritin 161, B12 346, and folate 13.8. Continue ferrous sulfate and add ascorbic acid and discontinue omeprazole to facilitate absorption. June 19. Hemoglobin minimally decreased to 9.3. Continue ferrous sulfate and ascorbic acid and remain off PPI. June 21. Recheck labs in a.m. June 23. Hemoglobin slightly improved to 9.5. Continue ferrous sulfate and ascorbic acid. June 25. Recheck labs in a.m. June 26. Hemoglobin stable at 9.5. Continue ferrous sulfate and ascorbic acid. Qualifiers: Anemia type: unspecified type Qualified Code(s): D64.9 - Anemia, unspecified (9) Low vitamin D level Current Visit: Yes Status: Acute Assessment and plan: June 15. Vitamin D level pending June 16. Vitamin D level normal at 34. (10) Anxiety and depression Current Visit: Yes Status: Acute Assessment and plan: June 15. Continue Zoloft June 26. Decrease Zoloft to avoid possible side effect of agitation and somnolence (11) Insomnia Current Visit: Yes Status: Acute Assessment and plan: June 19. He reports he is not consistently sleeping well at night and feels groggy in the daytime. Will order trazodone at bedtime and monitor. June 21. He reports insomnia has lessened. Continue trazodone. June 21. He appears lethargic. Decrease Zoloft as per above. Discontinue trazodone. Qualifiers: Insomnia type: unspecified Qualified Code(s): G47.00 - Insomnia, unspecified (12) Urinary retention Current Visit: Yes Status: Acute Assessment and plan: June 26. Continue Muñoz catheter per [facility] urologist recommendation. - Subjective Interval history: June 15. He has no new complaints. June 16. He has no new complaints except slight dyspnea. He inquired about going home and receiving antibiotics but was told insurance would not cover home antibiotics. I also explained he would benefit from ongoing therapy. June 19. He has no new complaints. June 21. He has no new complaints. June 23. He complains of slight dyspnea. He denies any cough or chest pain or other discomfort. June 25. He is sleeping and does not awaken to voice. June 26. He has no new complaints. He reports occasional dyspnea with activity but does not feel dyspneic at rest at this time. Staff reports he seems lethargic, confused, and agitated occasionally. June 27. He has no new complaints. June 28. He has no new complaints. He reports dyspnea has slightly lessened. - Constitutional Vitals: Temp Pulse Resp BP Pulse Ox 97.9 F 94 22 124/70 93 06/28/18 07:18 06/28/18 04:00 06/28/18 07:18 06/28/18 07:18 06/28/18 08:52 Exam: He is sitting in a wheelchair at bedside and appears fairly comfortable. He is wearing oxygen by nasal cannula. He is appropriate in conversation and does not appear lethargic. I reviewed his medications and lab results. Internal Medicine: Result - Labs CBC & Chem 7: 06/27/18 10:50 06/26/18 04:17 Labs: Short CBC 06/27/18 Range/Units 10:50 WBC 9.0 (4.3-11.1) K/mcL Hgb 9.5 L (12.9-16.9) g/dL Hct 30.4 L (37.5-50.1) % Plt Count 199 (140-400) K/mcL Neutrophils # 7.9 (1.6-8.9) K/mcL - ABG Interpretation ABG results: ABG ABG pH 7.48 pH Units (7.32-7.45) H 06/27/18 11:13 ABG pCO2 36 mmHg (35-45) 06/27/18 11:13 ABG pO2 65 mmHg (85-104) L 06/27/18 11:13 ABG O2 Saturation 94 % (95-98) L 06/27/18 11:13 - Impressions Impressions Chest X-Ray 06/27/18 10:25 IMPRESSION: Worsening airspace disease, right greater than left, most likely secondary to edema or pneumonia. Stable small left pleural effusion. D/ / Stiven Wright MD / Stiven Wright MD Interpreting Provider: Stiven Wright MD Consult Discharge Plan - Plan Referrals: Axel Bhardwaj MD [Primary Care Provider] - 1 week
[2018-06-28] MEDS: *HR* LORazepam 0.5 MG TABLET PO PRN (13:58)
[2018-06-28] MEDS: Albuterol 2.5 MG/3 ML NEBULIZER IH PRN ×2 (15:07→22:14)
[2018-06-28] MEDS: Gabapentin 100 MG CAPSULE PO SCH (20:30)
[2018-06-29] MEDS: *HR* OxyCODONE/APAP 10/325 TABLET PO PRN ×2 (00:07→20:52)
[2018-06-29] MEDS: *HR* LORazepam 0.5 MG TABLET PO PRN ×2 (01:49→20:52)
[2018-06-29 06:02] LABS: Basophils % 0.1 %; Hematocrit 30.9 % (37.5-50.1); Hemoglobin 9.5 g/dL (12.9-16.9); Immature Granulocytes % 0.4 % (0-4); Lymphocytes # 0.3 K/mcL (0.6-4.6); Lymphocytes % 3.1 %; Mean Corpuscular HGB Conc 30.7 g/dL (31.6-35.5); Mean Corpuscular Hemoglobin 24.4 pg (28.0-33.3); Mean Corpuscular Volume 79.2 fL (83.0-100.0); Monocytes # 0.5 K/mcL (0.0-1.3); Monocytes % 5.2 %; Neutrophils # 9.1 K/mcL (1.6-8.9); Platelet Count 236 K/mcL (140-400); Red Cell Distribution Width 18.2 % (11.5-14.5); Segmented Neutrophils % 91.2 %
[2018-06-29 06:25] LABS: Calcium 8.7 mg/dL (8.6-10.3); Potassium 3.5 mEq/L (3.5-5.1)
[2018-06-29] MEDS: Ascorbic Acid 500 MG TABLET PO SCH (06:50)
[2018-06-29] MEDS: Insulin LISPRO 300 UNITS/3 ML VIAL SQ SCH ×4 (09:18→20:53)
[2018-06-29] MEDS: Bumetanide 1 MG TABLET PO SCH (09:19)
[2018-06-29] MEDS: Calcium Acetate 667 MG CAPSULE PO SCH ×3 (09:19→18:03)
[2018-06-29] MEDS: hydrALAZINE 10 MG TABLET PO SCH ×3 (09:20→20:53)
[2018-06-29] MEDS: Metoprolol XL (24 HR) Succ 50 MG TAB.ER.24H PO SCH (09:20)
[2018-06-29] MEDS: Lactobacillus 1 EACH CAP.SPRINK PO SCH ×2 (09:20→20:52)
[2018-06-29] MEDS: Cholecalciferol (D-3) 1,000 UNIT TABLET PO SCH (09:20)
[2018-06-29] MEDS: Apixaban 5 MG TABLET PO SCH ×2 (09:21→20:52)
[2018-06-29] MEDS: Gabapentin 100 MG CAPSULE PO SCH ×2 (09:21→20:52)
[2018-06-29] MEDS: Isosorbide MONOnitrate (24 HR) 60 MG TAB.ER.24H PO SCH (09:21)
[2018-06-29] MEDS: levoFLOXacin 500 MG TABLET PO SCH (09:21)
[2018-06-29] MEDS: *HR* Digoxin 0.125 MG TABLET PO SCH (09:21)
[2018-06-29] MEDS: Sennosides 8.6 MG TABLET PO SCH (09:21)
[2018-06-29] MEDS: Insulin DETEMIR 100 UNIT/ML X5UNITS SQ SCH ×2 (09:31→20:54)
[2018-06-29] MEDS: Nicotine 21 MG PATCH.TD24 TD SCH (12:25)
[2018-06-29] MEDS: FARXIGA PO SCH (12:26)
[2018-06-29 12:45] LABS: ABG Base Excess 5 mEq/L (-2 to 3); ABG HCO3 28 mEq/L (21-27); ABG Oxygen Saturation 94 % (95-98); ABG PCO2 38 mmHg (35-45); ABG PH 7.49 pH Units (7.32-7.45); ABG PO2 66 mmHg (85-104); ABG TCO2 30 mEq/L (20-26)
[2018-06-29] MEDS: MOM Conc 10 ML UD.LIQ PO SCH (13:23)
--- NOTE | 2018-06-29 13:53 | Internal Med Progress Note ---
Date of Encounter: 06/29/18 Time of Encounter: 13:45 - Assessment and plan (1) Complete below knee amputation of right lower extremity Current Visit: Yes Status: Acute Assessment and plan: June 15. Continue Eliquis for DVT prophylaxis. Continue PT and OT intervention. June 27. Continue IV vancomycin through June 30. Qualifiers: Encounter type: initial encounter Qualified Code(s): S88.111A - Complete traumatic amputation at level between knee and ankle, right lower leg, initial encounter (2) Hypertension Current Visit: Yes Status: Chronic Assessment and plan: June 15. Blood pressure show significant fluctuation. Continue Lopressor, hydralazine, and Lasix. June 16. Change to Toprol-XL at increased dose since pressures are not well controlled. Continue hydralazine and Lasix. Add Imdur June 19. Blood pressure satisfactory. Continue hydralazine, Lasix, and Toprol with Imdur. Qualifiers: Hypertension type: essential hypertension Qualified Code(s): I10 - Essential (primary) hypertension (3) CAD (coronary artery disease) Current Visit: Yes Status: Chronic Assessment and plan: June 15. Continue Lopressor and Eliquis. June 16. Increase metoprolol dose as Toprol XL. Continue Eliquis. Add Imdur for CAD/heart failure. June 23. Continue Toprol, Eliquis, and increase Imdur. June 26. Increase Imdur for worsening BN peptide. Qualifiers: Coronary Disease-Associated Artery/Lesion type: [place] artery Associated angina: angina presence unspecified Qualified Code(s): I25.10 - At herosclerotic heart disease of [place] coronary artery without angina pectoris (4) CHF (congestive heart failure) Current Visit: Yes Status: Chronic Assessment and plan: June 15. Continue Lopressor, hydralazine, and Lasix. June 16. Add Imdur and change metoprolol to Toprol-XL. June 19. BN peptide improved to 1406. Increase Imdur and continue to monitor. June 21. Clinically improved. Recheck labs in a.m. June 23. BN peptide slightly improved to 1329 yesterday. Increase Imdur dose. June 25. Recheck labs in a.m. June 26. BN peptide significantly increased to 2592. Start Lanoxin and increase Imdur. Continue Toprol, hydralazine, and Lasix. June 27. BN peptide minimally changed at 2583 today. IV Lasix dose will be given. He will be changed from Lasix to Bumex June 28. Continue present regimen. Recheck labs in a.m. June 29. BN peptide has risen to 3988. Creatinine is higher at 1.67. Continue Lanoxin, Imdur, Toprol, hydralazine, and Bumex. Add low-dose Cozaar and Aldactone for symptomatic dyspnea. Qualifiers: Heart failure type: combined systolic and diastolic Heart failure chronici ty: chronic Qualified Code(s): I50.42 - Chronic combined systolic (congestive) and diastolic (congestive) heart failure (5) COPD (chronic obstructive pulmonary disease) Current Visit: Yes Status: Chronic Assessment and plan: June 15. Continue oxygen June 27. Chest x-ray showed findings recommending consideration for pneumonia. WBC remains normal but left shift is present. Start oral Levaquin. Continue IV vancomycin for MRSA infection. Qualifiers: COPD type: unspecified COPD Qualified Code(s): J44.9 - Chronic obstructive pulmonary disease, unspecified (6) CKD (chronic kidney disease) stage 3, GFR 30-59 ml/min Current Visit: Yes Status: Chronic Assessment and plan: June 15. Continue PhosLo. Monitor renal indices. June 25. Recheck labs in a.m. June 26. Creatinine stable at 1.55. June 29. BUN and creatinine have risen to 54 and 1.67 respectively with Bumex and additional IV Lasix. Start Aldactone and low dose Cozaar. (7) DM type 2 (diabetes mellitus, type 2) Current Visit: Yes Status: Chronic Assessment and plan: June 15. Hemoglobin A1c pending. Continue Accu-Cheks with SSI. June 16. Hemoglobin A1c elevated at 9.1%. Blood sugars currently adequately controlled. Continue Levemir and Accu-Cheks with SSI. Qualifiers: Diabetes mellitus residential insulin use: with residential use Diabetes mellitus complication status: with unspecified complications Qualified Code(s): E11.8 - Type 2 diabetes mellitus with unspecified complications; Z79.4 - terminal supervisor (current) use of insulin (8) Anemia Current Visit: Yes Status: Acute Assessment and plan: June 15. Anemia testing pending. June 16. Anemia testing shows iron 23, transferrin saturation 8%, transferrin 198, ferritin 161, B12 346, and folate 13.8. Continue ferrous sulfate and add ascorbic acid and discontinue omeprazole to facilitate absorption. June 19. Hemoglobin minimally decreased to 9.3. Continue ferrous sulfate and ascorbic acid and remain off PPI. June 21. Recheck labs in a.m. June 23. Hemoglobin slightly improved to 9.5. Continue ferrous sulfate and ascorbic acid. June 25. Recheck labs in a.m. June 26. Hemoglobin stable at 9.5. Continue ferrous sulfate and ascorbic acid. Qualifiers: Anemia type: unspecified type Qualified Code(s): D64.9 - Anemia, unspecified (9) Low vitamin D level Current Visit: Yes Status: Acute Assessment and plan: June 15. Vitamin D level pending June 16. Vitamin D level normal at 34. (10) Anxiety and depression Current Visit: Yes Status: Acute Assessment and plan: June 15. Continue Zoloft June 26. Decrease Zoloft to avoid possible side effect of agitation and somnolence June 29. Decrease Zoloft further to avoid agitation. (11) Insomnia Current Visit: Yes Status: Acute Assessment and plan: June 19. He reports he is not consistently sleeping well at night and feels groggy in the daytime. Will order trazodone at bedtime and monitor. June 21. He reports insomnia has lessened. Continue trazodone. June 21. He appears lethargic. Decrease Zoloft as per above. Discontinue trazodone. Qualifiers: Insomnia type: unspecified Qualified Code(s): G47.00 - Insomnia, unspecified (12) Urinary retention Current Visit: Yes Status: Acute Assessment and plan: June 26. Continue Muñoz catheter per [facility] urologist recommendation. - Subjective Interval history: June 15. He has no new complaints. June 16. He has no new complaints except slight dyspnea. He inquired about going home and receiving antibiotics but was told insurance would not cover home antibiotics. I also explained he would benefit from ongoing therapy. June 19. He has no new complaints. June 21. He has no new complaints. June 23. He complains of slight dyspnea. He denies any cough or chest pain or other discomfort. June 25. He is sleeping and does not awaken to voice. June 26. He has no new complaints. He reports occasional dyspnea with activity but does not feel dyspneic at rest at this time. Staff reports he seems lethargic, confused, and agitated occasionally. June 27. He has no new complaints. June 28. He has no new complaints. He reports dyspnea has slightly lessened. June 29. He has no new complaints. He reports his dyspnea is unchanged. Staff reported he was confused earlier. - Constitutional Vitals: Temp Pulse Resp BP Pulse Ox 97.9 F 88 20 135/76 86 06/29/18 05:12 06/29/18 05:12 06/29/18 05:12 06/29/18 05:12 06/29/18 05:12 Exam: He is sitting in a wheelchair at bedside. He is wearing oxygen by mask and is slightly dyspneic at rest. He is appropriate in conversation and answers all questions with appropriate answers. I reviewed with him results of his chest CT earlier today showing bilateral pleural effusions and pulmonary edema with possible pneumonia. He inquired about hospice and I told him he was appropriate candidate. Internal Medicine: Result - Labs CBC & Chem 7: 06/29/18 05:47 06/29/18 05:47 Labs: Short CBC 06/29/18 Range/Units 05:47 WBC 10.0 (4.3-11.1) K/mcL Hgb 9.5 L (12.9-16.9) g/dL Hct 30.9 L (37.5-50.1) % Plt Count 236 (140-400) K/mcL Neutrophils # 9.1 H (1.6-8.9) K/mcL BMP 06/29/18 05:47 Sodium 139 Potassium 3.5 Chloride 97 L Carbon Dioxide 26 BUN 54 H Creatinine 1.67 H Glucose 226 H Calcium 8.7 - ABG Interpretation ABG results: ABG ABG pH 7.49 pH Units (7.32-7.45) H 06/29/18 12:41 ABG pCO2 38 mmHg (35-45) 06/29/18 12:41 ABG pO2 66 mmHg (85-104) L 06/29/18 12:41 ABG O2 Saturation 94 % (95-98) L 06/29/18 12:41 - Impressions Impressions Chest CT 06/29/18 08:55 IMPRESSION: 1. Dense airspace opacification throughout both lungs. This could represent diffuse bilateral pneumonia or pulmonary edema related to congestive heart failure as the heart is enlarged. 2. Mildly enlarged mediastinal lymph nodes most likely reactive. D/ / 06/29/2018 10:23:51 Emory Valerio MD / neal Interpreting Provider: Emory Valerio MD Consult Discharge Plan - Plan Referrals: Axel Bhardwaj MD [Primary Care Provider] - 1 week
[2018-06-29] MEDS: Spironolactone 25 MG TABLET PO SCH (15:22)
[2018-06-30] MEDS: Albuterol 2.5 MG/3 ML NEBULIZER IH PRN (03:42)
[2018-06-30] MEDS ORDERED: *HR* LORazepam 2 MG/ML VIAL IM STA (05:01)
[2018-06-30 05:46] LABS: Basophils % 0.1 %; Eosinophils # 0.1 K/mcL (0.0-0.6); Eosinophils % 0.5 %; Hematocrit 33.3 % (37.5-50.1); Hemoglobin 10.2 g/dL (12.9-16.9); Immature Granulocytes % 0.4 % (0-4); Lymphocytes # 0.6 K/mcL (0.6-4.6); Lymphocytes % 3.8 %; Mean Corpuscular HGB Conc 30.6 g/dL (31.6-35.5); Mean Corpuscular Hemoglobin 24.7 pg (28.0-33.3); Mean Corpuscular Volume 80.6 fL (83.0-100.0); Mean Platelet Volume 9.3 fL (9.4-12.4); Monocytes # 0.9 K/mcL (0.0-1.3); Monocytes % 5.9 %; Nucleated Red Blood Cells 0.1 /100 WBC (0); Platelet Count 283 K/mcL (140-400); Red Blood Count 4.13 M/mcL (4.19-5.50); Red Cell Distribution Width 18.5 % (11.5-14.5); Segmented Neutrophils % 89.3 %
[2018-06-30 05:51] LABS: Neutrophils # 13.6 K/mcL (1.6-8.9)
[2018-06-30] MEDS ORDERED: Furosemide 40 MG/4 ML VIAL IVP ONE (05:57)
[2018-06-30] MEDS ORDERED: *HR* Morphine 2 MG/ML SYRINGE IVP ONE (05:59)
[2018-06-30 06:04] LABS: Calcium 8.5 mg/dL (8.6-10.3); Magnesium 2.5 mg/dL (1.6-2.6); Potassium 3.4 mEq/L (3.5-5.1)
[2018-06-30] MEDS: Ascorbic Acid 500 MG TABLET PO SCH (06:51)
[2018-06-30] MEDS: Calcium Acetate 667 MG CAPSULE PO SCH ×3 (10:38→17:45)
[2018-06-30] MEDS: Lactobacillus 1 EACH CAP.SPRINK PO SCH ×2 (10:38→21:24)
[2018-06-30] MEDS: Insulin LISPRO 300 UNITS/3 ML VIAL SQ SCH ×3 (10:38→21:28)
[2018-06-30] MEDS: Nicotine 21 MG PATCH.TD24 TD SCH (10:39)
[2018-06-30] MEDS: FARXIGA PO SCH (10:39)
[2018-06-30] MEDS: Sennosides 8.6 MG TABLET PO SCH (10:39)
[2018-06-30] MEDS: Cholecalciferol (D-3) 1,000 UNIT TABLET PO SCH (10:40)
--- NOTE | 2018-06-30 11:23 | Internal Med Progress Note ---
Date of Encounter: 06/30/18 Time of Encounter: 09:15 - Assessment and plan (1) Complete below knee amputation of right lower extremity Current Visit: Yes Status: Acute Assessment and plan: June 15. Continue Eliquis for DVT prophylaxis. Continue PT and OT intervention. June 27. Continue IV vancomycin through June 30. Qualifiers: Encounter type: initial encounter Qualified Code(s): S88.111A - Complete traumatic amputation at level between knee and ankle, right lower leg, initial encounter (2) Hypertension Current Visit: Yes Status: Chronic Assessment and plan: June 15. Blood pressure show significant fluctuation. Continue Lopressor, hydralazine, and Lasix. June 16. Change to Toprol-XL at increased dose since pressures are not well controlled. Continue hydralazine and Lasix. Add Imdur June 19. Blood pressure satisfactory. Continue hydralazine, Lasix, and Toprol with Imdur. Qualifiers: Hypertension type: essential hypertension Qualified Code(s): I10 - Essential (primary) hypertension (3) CAD (coronary artery disease) Current Visit: Yes Status: Chronic Assessment and plan: June 15. Continue Lopressor and Eliquis. June 16. Increase metoprolol dose as Toprol XL. Continue Eliquis. Add Imdur for CAD/heart failure. June 23. Continue Toprol, Eliquis, and increase Imdur. June 26. Increase Imdur for worsening BN peptide. Qualifiers: Coronary Disease-Associated Artery/Lesion type: [place] artery Associated angina: angina presence unspecified Qualified Code(s): I25.10 - At herosclerotic heart disease of [place] coronary artery without angina pectoris (4) CHF (congestive heart failure) Current Visit: Yes Status: Chronic Assessment and plan: June 15. Continue Lopressor, hydralazine, and Lasix. June 16. Add Imdur and change metoprolol to Toprol-XL. June 19. BN peptide improved to 1406. Increase Imdur and continue to monitor. June 21. Clinically improved. Recheck labs in a.m. June 23. BN peptide slightly improved to 1329 yesterday. Increase Imdur dose. June 25. Recheck labs in a.m. June 26. BN peptide significantly increased to 2592. Start Lanoxin and increase Imdur. Continue Toprol, hydralazine, and Lasix. June 27. BN peptide minimally changed at 2583 today. IV Lasix dose will be given. He will be changed from Lasix to Bumex June 28. Continue present regimen. Recheck labs in a.m. June 29. BN peptide has risen to 3988. Creatinine is higher at 1.67. Continue Lanoxin, Imdur, Toprol, hydralazine, and Bumex. Add low-dose Cozaar and Aldactone for symptomatic dyspnea. June 30. BNP decreased to 2715. Creatinine slightly decreased at 1.56. Continue present management. Qualifiers: Heart failure type: combined systolic and diastolic Heart failure chronicity: chronic Qualified Code(s): I50.42 - Chronic combined systolic (congestive) and diastolic (congestive) heart failure (5) COPD (chronic obstructive pulmonary disease) Current Visit: Yes Status: Chronic Assessment and plan: June 15. Continue oxygen June 27. Chest x-ray showed findings recommending consideration for pneumonia. WBC remains normal but left shift is present. Start oral Levaquin. Continue IV vancomycin for MRSA infection. June 30. WBC has risen to 15.2 with left shift present. Discontinue oral Levaquin and give IV Rocephin and clindamycin. Qualifiers: COPD type: unspecified COPD Qualified Code(s): J44.9 - Chronic obstructive pulmonary disease, unspecified (6) CKD (chronic kidney disease) stage 3, GFR 30-59 ml/min Current Visit: Yes Status: Chronic Assessment and plan: June 15. Continue PhosLo. Monitor renal indices. June 25. Recheck labs in a.m. June 26. Creatinine stable at 1.55. June 29. BUN and creatinine have risen to 54 and 1.67 respectively with Bumex and additional IV Lasix. Start Aldactone and low dose Cozaar. June 30. Creatinine improved at 1.56 today. (7) DM type 2 (diabetes mellitus, type 2) Current Visit: Yes Status: Chronic Assessment and plan: June 15. Hemoglobin A1c pending. Continue Accu-Cheks with SSI. June 16. Hemoglobin A1c elevated at 9.1%. Blood sugars currently adequately controlled. Continue Levemir and Accu-Cheks with SSI. Qualifiers: Diabetes mellitus nursing home insulin use: with nursing home use Diabetes mellitus complication status: with unspecified complications Qualified Code(s): E11.8 - Type 2 diabetes mellitus with unspecified complications; Z79.4 - retirement (current) use of insulin (8) Anemia Current Visit: Yes Status: Acute Assessment and plan: June 15. Anemia testing pending. June 16. Anemia testing shows iron 23, transferrin saturation 8%, transferrin 198, ferritin 161, B12 346, and folate 13.8. Continue ferrous sulfate and add ascorbic acid and discontinue omeprazole to facilitate absorption. June 19. Hemoglobin minimally decreased to 9.3. Continue ferrous sulfate and ascorbic acid and remain off PPI. June 21. Recheck labs in a.m. June 23. Hemoglobin slightly improved to 9.5. Continue ferrous sulfate and ascorbic acid. June 25. Recheck labs in a.m. June 26. Hemoglobin stable at 9.5. Continue ferrous sulfate and ascorbic acid. June 30. Hemoglobin 10.2 today likely secondary to hemoconcentration from IV Lasix. Qualifiers: Anemia type: unspecified type Qualified Code(s): D64.9 - Anemia, unspecified (9) Low vitamin D level Current Visit: Yes Status: Acute Assessment and plan: June 15. Vitamin D level pending June 16. Vitamin D level normal at 34. (10) Anxiety and depression Current Visit: Yes Status: Acute Assessment and plan: June 15. Continue Zoloft June 26. Decrease Zoloft to avoid possible side effect of agitation and somnolence June 29. Decrease Zoloft further to avoid agitation. (11) Insomnia Current Visit: Yes Status: Acute Assessment and plan: June 19. He reports he is not consistently sleeping well at night and feels groggy in the daytime. Will order trazodone at bedtime and monitor. June 21. He reports insomnia has lessened. Continue trazodone. June 21. He appears lethargic. Decrease Zoloft as per above. Discontinue trazodone. Qualifiers: Insomnia type: unspecified Qualified Code(s): G47.00 - Insomnia, unspecified (12) Urinary retention Current Visit: Yes Status: Acute Assessment and plan: June 26. Continue Muñoz catheter per [facility] urologist recommendation. (13) Advanced care planning/counseling discussion Current Visit: Yes Status: Acute Assessment and plan: I spoke at length with his girlfriend/DPOA and explained in adequate detail his present status and poor prognosis. She asked for time to reflect on the conversation and contact other family members while considering hospice. - Subjective Interval history: June 15. He has no new complaints. June 16. He has no new complaints except slight dyspnea. He inquired about going home and receiving antibiotics but was told insurance would not cover home antibiotics. I also explained he would benefit from ongoing therapy. June 19. He has no new complaints. June 21. He has no new complaints. June 23. He complains of slight dyspnea. He denies any cough or chest pain or other discomfort. June 25. He is sleeping and does not awaken to voice. June 26. He has no new complaints. He reports occasional dyspnea with activity but does not feel dyspneic at rest at this time. Staff reports he seems lethargic, confused, and agitated occasionally. June 27. He has no new complaints. June 28. He has no new complaints. He reports dyspnea has slightly lessened. June 29. He has no new complaints. He reports his dyspnea is unchanged. Staff reported he was confused earlier. June 30. He became less responsive earlier today and developed hypoxemia. The ER physician was called to evaluate. She ordered him on continuous BiPAP and gave IV Lasix. - Constitutional Vitals: Temp Pulse Resp BP Pulse Ox 98.7 F 85 18 118/58 98 06/29/18 19:01 06/29/18 19:01 06/30/18 03:42 06/29/18 19:01 06/30/18 09:48 Exam: He is lying in bed wearing the BiPAP at settings of 14/6 with rate of 12. Saturations are approximately 98% now. I reviewed his medications and lab results. Internal Medicine: Result - Labs CBC & Chem 7: 06/30/18 05:30 06/30/18 05:30 Labs: Short CBC 06/30/18 Range/Units 05:30 WBC 15.2 H D (4.3-11.1) K/mcL Hgb 10.2 L (12.9-16.9) g/dL Hct 33.3 L (37.5-50.1) % Plt Count 283 (140-400) K/mcL Neutrophils # 13.6 H (1.6-8.9) K/mcL BMP 06/30/18 05:30 Sodium 139 Potassium 3.4 L Chloride 98 Carbon Dioxide 29 BUN 64 H Creatinine 1.56 H Glucose 187 H Calcium 8.5 L - ABG Interpretation ABG results: ABG ABG pH 7.49 pH Units (7.32-7.45) H 06/29/18 12:41 ABG pCO2 38 mmHg (35-45) 06/29/18 12:41 ABG pO2 66 mmHg (85-104) L 06/29/18 12:41 ABG O2 Saturation 94 % (95-98) L 06/29/18 12:41 - Impressions Impressions Chest CT 06/29/18 08:55 IMPRESSION: 1. Dense airspace opacification throughout both lungs. This could represent diffuse bilateral pneumonia or pulmonary edema related to congestive heart failure as the heart is enlarged. 2. Mildly enlarged mediastinal lymph nodes most likely reactive. D/ / 06/29/2018 10:23:51 Emory Valerio MD / [email or web address] Interpreting Provider: Emory Valerio MD Consult Discharge Plan - Plan Referrals: Axel Bhardwaj MD [Primary Care Provider] - 1 week
[2018-06-30] MEDS: Insulin DETEMIR 100 UNIT/ML X5UNITS SQ SCH ×2 (13:32→21:32)
[2018-06-30] MEDS: cefTRIAXone 1,000 MG in Water for inj. (sterile) 20 ML 10 ML IVP SCH (15:26)
[2018-06-30] MEDS: hydrALAZINE 10 MG TABLET PO SCH ×3 (16:23→21:30)
[2018-06-30] MEDS: Apixaban 5 MG TABLET PO SCH ×2 (16:23→21:25)
[2018-06-30] MEDS: Bumetanide 1 MG TABLET PO SCH (16:23)
[2018-06-30] MEDS: Spironolactone 25 MG TABLET PO SCH (16:23)
[2018-06-30] MEDS: Isosorbide MONOnitrate (24 HR) 60 MG TAB.ER.24H PO SCH (16:24)
[2018-06-30] MEDS: *HR* Digoxin 0.125 MG TABLET PO SCH (16:24)
[2018-06-30] MEDS: Gabapentin 100 MG CAPSULE PO SCH ×2 (16:24→21:31)
[2018-06-30] MEDS: Metoprolol XL (24 HR) Succ 50 MG TAB.ER.24H PO SCH (16:25)
[2018-06-30] MEDS: Clindamycin 600 MG/50 ML 600 MG/50 ML IV.SOLN IVPB SCH ×3 (16:36→23:13)
[2018-06-30] MEDS: levoFLOXacin 500 MG TABLET PO SCH (19:39)
[2018-06-30] MEDS: *HR* LORazepam 2 MG/ML VIAL IVP PRN ×2 (21:05→23:12)
[2018-07-01] MEDS: *HR* LORazepam 2 MG/ML VIAL IVP PRN ×3 (01:14→08:00)
[2018-07-01 05:01] LABS: Basophils % 0.1 %; Eosinophils # 0.2 K/mcL (0.0-0.6); Eosinophils % 2.8 %; Hemoglobin 9.9 g/dL (12.9-16.9); Immature Granulocytes % 0.5 % (0-4); Lymphocytes # 0.3 K/mcL (0.6-4.6); Lymphocytes % 3.2 %; Mean Corpuscular Hemoglobin 24.3 pg (28.0-33.3); Mean Corpuscular Volume 81.1 fL (83.0-100.0); Mean Platelet Volume 9.3 fL (9.4-12.4); Monocytes # 0.5 K/mcL (0.0-1.3); Monocytes % 6.2 %; Neutrophils # 6.8 K/mcL (1.6-8.9); Platelet Count 194 K/mcL (140-400); Red Blood Count 4.07 M/mcL (4.19-5.50); Red Cell Distribution Width 18.2 % (11.5-14.5); Segmented Neutrophils % 87.2 %
[2018-07-01 05:20] LABS: Alanine Aminotransferase 25 Units/L (7-52); Albumin/Globulin Ratio 0.8 (1.1-2.2); Alkaline Phosphatase 116 Units/L (34-104); Aspartate Amino Transferase 44 Units/L (13-39); BUN/Creatinine Ratio 46 (6-26); Bilirubin,Total 0.6 mg/dL (0.3-1.0); Blood Urea Nitrogen 63 mg/dL (6-20); Calcium 8.3 mg/dL (8.6-10.3); Carbon Dioxide 33 mEq/L (23-29); Chloride 99 mEq/L (98-107); Digoxin 0.6 ng/mL (0.8-2.0); Globulin 3.9 g/dL (2.4-3.5); Glucose 192 mg/dL (70-105); Osmolality,Calculated 317 (280-300); Potassium 3.2 mEq/L (3.5-5.1); Sodium 142 mEq/L (136-145); Total Protein 6.9 g/dL (6.4-8.9); eGFR For Non-African Americans 54 (> 60)
[2018-07-01] MEDS: cefTRIAXone 1,000 MG in Water for inj. (sterile) 20 ML 10 ML IVP SCH (08:21)
[2018-07-01] MEDS: Clindamycin 600 MG/50 ML 600 MG/50 ML IV.SOLN IVPB SCH ×2 (08:26→15:42)
[2018-07-01] MEDS: Ascorbic Acid 500 MG TABLET PO SCH (08:47)
[2018-07-01] MEDS: Insulin LISPRO 300 UNITS/3 ML VIAL SQ SCH ×4 (08:49→20:20)
[2018-07-01] MEDS: Calcium Acetate 667 MG CAPSULE PO SCH ×3 (08:50→16:33)
[2018-07-01] MEDS: Spironolactone 25 MG TABLET PO SCH (08:50)
[2018-07-01] MEDS: Bumetanide 1 MG TABLET PO SCH (08:51)
[2018-07-01] MEDS: hydrALAZINE 10 MG TABLET PO SCH (08:52)
[2018-07-01] MEDS: Lactobacillus 1 EACH CAP.SPRINK PO SCH ×2 (08:52→20:20)
[2018-07-01] MEDS: Isosorbide MONOnitrate (24 HR) 60 MG TAB.ER.24H PO SCH (08:52)
[2018-07-01] MEDS: Apixaban 5 MG TABLET PO SCH ×2 (08:52→20:20)
[2018-07-01] MEDS: *HR* Digoxin 0.125 MG TABLET PO SCH (08:53)
[2018-07-01] MEDS: Gabapentin 100 MG CAPSULE PO SCH (08:54)
[2018-07-01] MEDS: Cholecalciferol (D-3) 1,000 UNIT TABLET PO SCH (08:56)
[2018-07-01] MEDS: Sennosides 8.6 MG TABLET PO SCH (08:56)
[2018-07-01] MEDS: Metoprolol XL (24 HR) Succ 50 MG TAB.ER.24H PO SCH (08:56)
[2018-07-01] MEDS: FARXIGA PO SCH (08:57)
[2018-07-01] MEDS: Nicotine 21 MG PATCH.TD24 TD SCH (09:00)
[2018-07-01] MEDS ORDERED: Furosemide 40 MG/4 ML VIAL IVP ONE (09:21)
[2018-07-01] MEDS: Insulin DETEMIR 100 UNIT/ML X5UNITS SQ SCH ×2 (09:57→20:05)
--- NOTE | 2018-07-01 11:21 | Internal Med Progress Note ---
Date of Encounter: 07/01/18 Time of Encounter: 11:10 - Assessment and plan (1) Complete below knee amputation of right lower extremity Current Visit: Yes Status: Acute Assessment and plan: June 15. Continue Eliquis for DVT prophylaxis. Continue PT and OT intervention. June 27. Continue IV vancomycin through June 30. July 01. Discontinue IV vancomycin. Qualifiers: Encounter type: initial encounter Qualified Code(s): S88.111A - Complete traumatic amputation at level between knee and ankle, right lower leg, initial encounter (2) Hypertension Current Visit: Yes Status: Chronic Assessment and plan: June 15. Blood pressure show significant fluctuation. Continue Lopressor, hydralazine, and Lasix. June 16. Change to Toprol-XL at increased dose since pressures are not well controlled. Continue hydralazine and Lasix. Add Imdur June 19. Blood pressure satisfactory. Continue hydralazine, Lasix, and Toprol with Imdur. July 01. Blood pressure satisfactory. He is not taking oral medication now because of dysphagia. Qualifiers: Hypertension type: essential hypertension Qualified Code(s): I10 - Essential (primary) hypertension (3) CAD (coronary artery disease) Current Visit: Yes Status: Chronic Assessment and plan: June 15. Continue Lopressor and Eliquis. June 16. Increase metoprolol dose as Toprol XL. Continue Eliquis. Add Imdur for CAD/heart failure. June 23. Continue Toprol, Eliquis, and increase Imdur. June 26. Increase Imdur for worsening BN peptide. Qualifiers: Coronary Disease-Associated Artery/Lesion type: [place] artery Associated angina: angina presence unspecified Qualified Code(s): I25.10 - Atherosclerotic heart disease of [place] coronary artery without angina pectoris (4) CHF (congestive heart failure) Current Visit: Yes Status: Chronic Assessment and plan: June 15. Continue Lopressor, hydralazine, and Lasix. June 16. Add Imdur and change metoprolol to Toprol-XL. June 19. BN peptide improved to 1406. Increase Imdur and continue to monitor. June 21. Clinically improved. Recheck labs in a.m. June 23. BN peptide slightly improved to 1329 yesterday. Increase Imdur dose. June 25. Recheck labs in a.m. June 26. BN peptide significantly increased to 2592. Start Lanoxin and increase Imdur. Continue Toprol, hydralazine, and Lasix. June 27. BN peptide minimally changed at 2583 today. IV Lasix dose will be given. He will be changed from Lasix to Bumex June 28. Continue present regimen. Recheck labs in a.m. June 29. BN peptide has risen to 3988. Creatinine is higher at 1.67. C ontinue Lanoxin, Imdur, Toprol, hydralazine, and Bumex. Add low-dose Cozaar and Aldactone for symptomatic dyspnea. June 30. BNP decreased to 2715. Creatinine slightly decreased at 1.56. Continue present management. July 01. He is not taking oral medication. Change to IV diuretics. Qualifiers: Heart failure type: combined systolic and diastolic Heart failure chronicity: chronic Qualified Code(s): I50.42 - Chronic combined systolic (congestive) and diastolic (congestive) heart failure (5) COPD (chronic obstructive pulmonary disease) Current Visit: Yes Status: Chronic Assessment and plan: June 15. Continue oxygen June 27. Chest x-ray showed findings recommending consideration for pneumo [place]. WBC remains normal but left shift is present. Start oral Levaquin. Continue IV vancomycin for MRSA infection. June 30. WBC has risen to 15.2 with left shift present. Discontinue oral Levaquin and give IV Rocephin and clindamycin. July 01. WBC normalized to 7.8 with slight decrease in left shift. Continue IV Rocephin and clindamycin with lactobacillus. Qualifiers: COPD type: unspecified COPD Qualified Code(s): J44.9 - Chronic obstructive pulmonary disease, unspecified (6) CKD (chronic kidney disease) stage 3, GFR 30-59 ml/min Current Visit: Yes Status: Chronic Assessment and plan: June 15. Continue PhosLo. Monitor renal indices. June 25. Recheck labs in a.m. June 26. Creatinine stable at 1.55. June 29. BUN and creatinine have risen to 54 and 1.67 respectively with Bumex and additional IV Lasix. Start Aldactone and low dose Cozaar. June 30. Creatinine improved at 1.56 today. July 01. Creatinine further decreased to 1.37. Continue present regimen. (7) DM type 2 (diabetes mellitus, type 2) Current Visit: Yes Status: Chronic Assessment and plan: June 15. Hemoglobin A1c pending. Continue Accu-Cheks with SSI. June 16. Hemoglobin A1c elevated at 9.1%. Blood sugars currently adequately controlled. Continue Levemir and Accu-Cheks with SSI. Qualifiers: Diabetes mellitus [employer]termaker continuous churn insulin use: with buttermaker continuous churn use Diabetes rubi itus complication status: with unspecified complications Qualified Code(s): E11.8 - Type 2 diabetes mellitus with unspecified complications; Z79.4 - correction (current) use of insulin (8) Anemia Current Visit: Yes Status: Acute Assessment and plan: June 15. Anemia testing pending. June 16. Anemia testing shows iron 23, transferrin saturation 8%, transf [place] 198, ferritin 161, B12 346, and folate 13.8. Continue ferrous sulfate and add ascorbic acid and discontinue omeprazole to facilitate absorption. June 19. Hemoglobin minimally decreased to 9.3. Continue ferrous sulfate and ascorbic acid and remain off PPI. June 21. Recheck labs in a.m. June 23. Hemoglobin slightly improved to 9.5. Continue ferrous sulfate and ascorbic acid. June 25. Recheck labs in a.m. June 26. Hemoglobin stable at 9.5. Continue ferrous sulfate and ascorbic acid. June 30. Hemoglobin 10.2 today likely secondary to hemoconcentration from IV Lasix. Qualifiers: Anemia type: unspecified type Qualified Code(s): D64.9 - Anemia, unspecified (9) Low vitamin D level Current Visit: Yes Status: Acute Assessment and plan: June 15. Vitamin D level pending June 16. Vitamin D level normal at 34. (10) Anxiety and depression Current Visit: Yes Status: Acute Assessment and plan: June 15. Continue Zoloft June 26. Decrease Zoloft to avoid possible side effect of agitation and somnolence June 29. Decrease Zoloft further to avoid agitation. July 01. Order Ativan Intensol (11) Insomnia Current Visit: Yes Status: Acute Assessment and plan: June 19. He reports he is not consistently sleeping well at night and feels groggy in the daytime. Will order trazodone at bedtime and monitor. June 21. He reports insomnia has lessened. Continue trazodone. June 21. He appears lethargic. Decrease Zoloft as per above. Discontinue trazodone. Qualifiers: Insomnia type: unspecified Qualified Code(s): G47.00 - Insomnia, unspecified (12) Urinary retention Current Visit: Yes Status: Acute Assessment and plan: June 26. Continue Muñoz catheter per [facility] urologist recommendation. (13) Advanced care planning/counseling discussion Current Visit: Yes Status: Acute Assessment and plan: June 30. I spoke at length with his girlfriend/DPOA and explained in adequate detail his present status and poor prognosis. She asked for time to reflect on the conversation and contact other family members while considering hospice. July 01. He has been changed to DNR CC. Family is aware of his very poor prognosis. Start Ativan Intensol and Roxanol. - Subjective Interval history: June 15. He has no new complaints. June 16. He has no new complaints except slight dyspnea. He inquired about going home and receiving antibiotics but was told insurance would not cover home antibiotics. I also explained he would benefit from ongoing therapy. June 19. He has no new complaints. June 21. He has no new complaints. June 23. He complains of slight dyspnea. He denies any cough or chest pain or other discomfort. June 25. He is sleeping and does not awaken to voice. June 26. He has no new complaints. He reports occasional dyspnea with activity but does not feel dyspneic at rest at this time. Staff reports he seems lethargic, confused, and agitated occasionally. June 27. He has no new complaints. June 28. He has no new complaints. He reports dyspnea has slightly lessened. June 29. He has no new complaints. He reports his dyspnea is unchanged. Staff reported he was confused earlier. June 30. He became less responsive earlier today and developed hypoxemia. The ER physician was called to evaluate. She ordered him on continuous BiPAP and gave IV Lasix. July 01. He has no new complaints. - Constitutional Vitals: Temp Pulse Resp BP Pulse Ox 98.5 F 103 46 126/64 91 07/01/18 07:28 07/01/18 07:28 07/01/18 07:28 07/01/18 07:28 07/01/18 07:28 Exam: He is sitting up in bed bed over wearing BiPAP. Saturations are 90% with heart rate approximately 105/m. Lungs show no wheezes or crackles. I reviewed his medications and lab results. Internal Medicine: Result - Labs CBC & Chem 7: 07/01/18 04:45 07/01/18 04:45 Labs: Short CBC 07/01/18 Range/Units 04:45 WBC 7.8 (4.3-11.1) K/mcL Hgb 9.9 L (12.9-16.9) g/dL Hct 33.0 L (37.5-50.1) % Plt Count 194 (140-400) K/mcL Neutrophils # 6.8 (1.6-8.9) K/mcL BMP 07/01/18 04:45 Sodium 142 Potassium 3.2 L Chloride 99 Carbon Dioxide 33 H BUN 63 H Creatinine 1.37 H Glucose 192 H Calcium 8.3 L Liver Function 07/01/18 Range/Units 04:45 Total Bilirubin 0.6 (0.3-1.0) mg/dL AST 44 H (13-39) Units/L ALT 25 (7-52) Units/L Alkaline Phosphatase 116 H (34-104) Units/L Albumin 3.0 L (3.5-5.7) g/dL - ABG Interpretation ABG results: ABG ABG pH 7.49 pH Units (7.32-7.45) H 06/29/18 12:41 ABG pCO2 38 mmHg (35-45) 06/29/18 12:41 ABG pO2 66 mmHg (85-104) L 06/29/18 12:41 ABG O2 Saturation 94 % (95-98) L 06/29/18 12:41 Consult Discharge Plan - Plan Referrals: Axel Bhardwaj MD [Primary Care Provider] - 1 week
[2018-07-01] MEDS: *HR* LORazepam Oral Conc 2 MG/ML SL PRN ×4 (11:56→21:08)
[2018-07-01] MEDS: MORPHINE SUL Oral CONC 10 MG/0.5 ML ORAL.SYG SL PRN ×6 (11:56→21:08)
[2018-07-01] MEDS: Furosemide 20 MG/2 ML VIAL IVP SCH ×2 (11:58→20:05)
[2018-07-01] MEDS: MOM Conc 10 ML UD.LIQ PO SCH (12:25)
[2018-07-01 18:34] VITALS: BP 146/82
[2018-07-01] MEDS ORDERED: Silver Nitrate Applicator 1 STICK..EA. TP ONE (20:58)
[2018-07-01] MEDS ORDERED: Oxymetazoline Nasal SPRAY BOTTLE NS PRN (21:07)
--- NOTE | 2018-07-02 12:54 | Discharge Summary ---
Date of Encounter: 07/02/18 Time of Encounter: 12:52 - Discharge Diagnosis (1) CHF (congestive heart failure) Priority: Primary Status: Chronic Qualifiers: Heart failure type: combined systolic and diastolic Heart failure chronicity: chronic Qualified Code(s): I50.42 - Chronic combined systolic (congestive) and diastolic (congestive) heart failure (2) Complete below knee amputation of right lower extremity Priority: Secondary Status: Acute Qualifiers: Encounter type: initial encounter Qualified Code(s): S88.111A - Complete traumatic amputation at level between knee and ankle, right lower leg, initial encounter (3) Hypertension Priority: Secondary Status: Chronic Qualifiers: Hypertension type: essential hypertension Qualified Code(s): I10 - Essential (primary) hypertension (4) CAD (coronary artery disease) Priority: Secondary Status: Chronic Qualifiers: Coronary Disease-Associated Artery/Lesion type: [place] artery Associated angina: angina presence unspecified Qualified Code(s): I25.10 - Atherosclerotic heart disease of [place] coronary artery without angina pectoris (5) COPD (chronic obstructive pulmonary disease) Priority: Secondary Status: Chronic Qualifiers: COPD type: unspecified COPD Qualified Code(s): J44.9 - Chronic obstructive pulmonary disease, unspecified (6) CKD (chronic kidney disease) stage 3, GFR 30-59 ml/min Priority: Secondary Status: Chronic (7) DM type 2 (diabetes mellitus, type 2) Priority: Secondary Status: Chronic Qualifiers: Diabetes mellitus fpc insulin use: with moth exterminator use Diabetes mellitus complication status: with unspecified complications Qualified Code (s): E11.8 - Type 2 diabetes mellitus with unspecified complications; Z79.4 - long term (current) use of insulin (8) Anemia Priority: Secondary Status: Acute Qualifiers: Anemia type: unspecified type Qualified Code(s): D64.9 - Anemia, unspecified (9) Low vitamin D level Priority: Secondary Status: Acute (10) Anxiety and depression Priority: Secondary Status: Acute (11) Insomnia Priority: Secondary Status: Acute Qualifiers: Insomnia type: unspecified Qualified Code(s): G47.00 - Insomnia, unspecified (12) Urinary retention Priority: Secondary Status: Acute (13) Advanced care planning/counseling discussion Priority: Secondary Status: Acute Hospital course: Mr. Gillespie is a 52 year old male who was admitted to [facility] swing bed following hospitalization at [facility] where he underwent right BKA. He has been treated for o steomyelitis of the right foot and had severe peripheral vascular disease. His postop course was unremarkable and he was transferred to [facility] swing bed for rehabilitation therapy. Initial orders were written by the discharging physicians at [facility]. I saw him on June 14 and performed the swing bed history and physical. PT and OT evaluations and ongoing intervention were ordered. Eliquis was continued for DVT prophylaxis. He made slight progress in therapy. He had frequent episodes of lethargy with minimal cooperation with the therapists. Blood pressure remained satisfactory on Lopressor, hydralazine, and Lasix. He had worsening heart failure with increased pleural effusions and interstitial edema pattern on imaging. Medications were increased with slight improvement. BiPAP was increasingly needed to maintain satisfactory oxygenation and ventilation. On June 30 I spoke at length with his girlfriend/DPOA and explained his present status and poor prognosis. Advanced directives were changed to DNR CC status. He was given Ativan Intensol and Roxanol. He had ongoing gradual decline and was found without pulse or respirations at 2125 on July 01 and was pronounced . No resuscitative efforts were done as per advanced directives. - Time Spent with Patient Total time spent providing and/or coordinating discharge services: - Discharge Medications Home Medications: Clopidogrel [Plavix] 75 mg PO DAILY 02/24/15 [History] Gabapentin 300 mg PO QAM 03/17/15 [History] Insulin ASPART [NovoLOG] 5 - 25 units SQ TID PRN 03/17/15 [History] Invokana 10 mg PO QAM 03/17/15 [History] Klonopin 1 mg PO QAM 03/17/15 [History] Nexium 40 mg PO QAM 03/17/15 [History] Percocet 10-325 mg Tablet 10 mg PO Q4HR 03/17/15 [History] Warfarin [Coumadin] 9 mg PO DAILY 03/17/15 [History] Zoloft 150 mg PO DAILY 03/17/15 [History] Ezetimibe [Zetia] 10 mg PO QAM 07/17/15 [History] Insulin DETEMIR [Levemir] 75 unit SQ BID 07/17/15 [History] Metoprolol [Lopressor] 25 mg PO BID 07/17/15 [History] Celecoxib [Celebrex] 200 mg PO BID 06/08/16 [History] Cyclobenzaprine [Flexeril] 10 mg PO TID PRN 06/08/16 [History] Furosemide [Lasix] 40 mg PO DAILY 06/08/16 [History] Allergies/Adverse Reactions: Allergy/AdvReac Type Severity Reaction Status Date / Time No Known Allergies Allergy Verified 02/24/15 15:48 Date of admission: 06/13/18 18:48 Primary care physician: Axel Bhardwaj MD Consults: 06/13/18 20:23 Consult to Physical Therapy [CONS] Routine Comment: Evaluate, develop and implement POC Reason for Consult: to evaluate and treat Does patient have active BEDREST order?: No Is patient medically & hemodynamically stable?: Yes 06/13/18 20:24 Consult to Occupational Therapy [CONS] Routine Comment: Evaluate, develop and implement POC Reason for Consult: to evaluate and treat Does patient have active BEDREST order?: No Is patient medically & hemodynamically stable?: Yes - Constitutional Vitals: Temp Pulse Resp BP Pulse Ox 98.7 F 91 34 146/82 94 07/01/18 18:32 07/01/18 18:32 07/01/18 18:32 07/01/18 18:32 07/01/18 20:05 - Patient Status Disposition: - Discharge Instructions Follow Up With: Axel Bhardwaj MD [Primary Care Provider] - 1 week
== END 2018-07-01 23:30 | disposition expired | DRG 559 ==
LOC: INPPIK 06-13 18:48
PROVIDERS: ADMIT Internal Medicine; ATTEND Internal Medicine